=== PATIENT | female | born 1995 | race Caucasian/White ===

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

== ENCOUNTER 2017-04-23 17:34 | Emergency (ER) | payer BC, MEDICAID ==
--- NOTE | 2017-04-23 19:04 | EDM.PDOC ---
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 Pt thinks she lost a lot blood an is dizzy because of that. No N/V/D, denies . No F/C no other acute medical issues. Onset: Unknown/Unsure Onset Date: 04/19/17 Onset Time: 07:00 Duration: Day(s): Location: Reports: Pelvis Quality: Reports: Other Severity: Mild Improves with: Reports: None Worsens with: Reports: None Associated Symptoms: Reports: No Other Symptoms Lower Abdomen Pain Score (Numeric/FACES): 8 - Related Data Allergies Allergy/AdvReac Type Severity Reaction Status Date / Time No Known Allergies Allergy Verified 04/23/17 17:42 Home Meds: Home Meds Prazosin [Minpress] 1 mg PO DAILY 04/23/17 [History] buPROPion [Wellbutrin] 100 mg PO DAILY 04/23/17 [History] traMADol [Ultram] 50 mg PO Q6H PRN 04/23/17 [History] Past Medical History HEENT History: Reports: Impaired Vision Psychiatric History: Reports: Panic Attack - Past Surgical History HEENT Surgical History: Reports: Tonsillectomy Other HEENT Surgeries/Procedures: eye muscle shortening previously cross-eyed Social & Family History - Family History Family Medical History: Noncontributory - Tobacco Use Smoking Status *Q: Current Every Day Smoker Years of Tobacco use: 9 Packs/Tins Daily: 0.5 - Caffeine Use Caffeine Use: Reports: Tea - Recreational Drug Use Recreational Drug Use: No Recreational Drug Type: Reports: Cocaine, Other (see below) Other Recreational Drug Type: adderal. ED ROS GENERAL - Review of Systems Review Of Systems: See Below Constitutional: Reports: Other (dizzi) HEENT: Reports: No Symptoms Respiratory: Reports: No Symptoms Cardiovascular: Reports: No Symptoms Endocrine: Reports: No Symptoms GI/Abdominal: Reports: No Symptoms : Reports: No Symptoms Musculoskeletal: Reports: No Symptoms Skin: Reports: No Symptoms Neurological: Reports: No Symptoms Psychiatric: Reports: No Symptoms Hematologic/Lymphatic: Reports: No Symptoms Immunologic: Reports: No Symptoms ED EXAM, GI/ABD - Physical Exam Exam: See Below Exam Limited By: No Limitations General Appearance: Alert, WD/WN, No Apparent Distress Eyes: Bilateral: Normal Appearance Ears: Normal External Exam Nose: Normal Inspection, Normal Mucosa Throat/Mouth: Normal Inspection, Normal Lips Head: Atraumatic, Normocephalic Neck: Normal Inspection, Supple, Non-Tender, Full Range of Motion Respiratory/Chest: No Respiratory Distress, Lungs Clear Cardiovascular: Normal Peripheral Pulses, Regular Rate, Rhythm, No Edema, No Gallop, No JVD, No Murmur, No Rub GI/Abdominal Exam: Normal Bowel Sounds, Soft, Non-Tender, No Organomegaly, No Distention, No Abnormal Bruit, No Mass, Pelvis Stable (Female) Exam: Deferred Rectal (Female) Exam: Deferred Back Exam: Normal Inspection, Full Range of Motion Extremities: Normal Inspection, Normal Range of Motion, Non-Tender, No Pedal Edema, Normal Capillary Refill Neurological: Alert, Oriented, CN II-XII Intact, Normal Cognition, Normal Gait, Normal Reflexes, No Motor/Sensory Deficits Psychiatric: Normal Affect, Normal Mood Skin Exam: Warm, Dry, Intact, Normal Color, No Rash Lymphatic: No Adenopathy Course - Vital Signs Text/Narrative:: 22 my.o.w.f came to the ed due to irregular menses-4 menstrual periods in 4 weeks- and dizziness. Pt thinks she lost a lot blood an is dizzy because of that. No N/V/D, denies . No F/C no other acute medical issues. PE: WNWD WF, NAD Orthostatic pos for dehyd. with puls change from supine to standing position. Labs: CBC nl Impression: Irregular menses, dehydration Tx: Water to drink Reexam: Improved Plan: D/C with instructions Last Recorded V/S: Last Vital Signs Temp 36.9 C 04/23/17 17:47 Pulse 88 04/23/17 19:15 Resp 20 04/23/17 17:47 BP 107/56 L 04/23/17 19:15 Pulse Ox 99 04/23/17 17:47 Orthostatic Blood Pressure [ 108/58 Standing] Orthostatic Blood Pressure [ 115/67 Sitting] Orthostatic Blood Pressure [ 120/60 Supine] - Orders/Labs/Meds Orders: Active Orders 24 hr Category Date Time Status Orthostatic Vital Signs [RC] ASDIRECTED Care 04/23/17 18:01 Active Labs: Laboratory Tests 04/23/17 04/23/17 04/23/17 Range/Units 17:48 17:48 18:30 WBC 5.6 (4.5-12.0) X10-3/uL RBC 5.15 (3.23-5.20) x10(6)uL Hgb 14.7 (11.5-15.5) g/dL Hct 43.2 (30.0-51.3) % MCV 83.9 (80-96) fL MCH 28.5 (27.7-33.6) pg MCHC 33.9 (32.2-35.4) g/dL RDW 12.1 (11.5-15.5) % Plt Count 233 (125-369) X10(3)uL MPV 10.2 (7.4-10.4) fL Neut % (Auto) 67.8 (46-82) % Lymph % (Auto) 23.7 (13-37) % [place] % (Auto) 6.0 (4-12) % Eos % (Auto) 2 (1.0-5.0) % Baso % (Auto) 0 (0-2) % Neut # (Auto) 3.9 (1.6-8.3) # Lymph # (Auto) 1.3 (0.6-5.0) # [place] # (Auto) 0.3 (0.0-1.3) # Eos # (Auto) 0.1 (0.0-0.8) # Baso # (Auto) 0.0 (0.0-0.2) # Sodium (135-145) mmol/L Potassium (3.5-5.3) mmol/L Chloride (100-110) mmol/L Carbon Dioxide (23-29) mmol/L BUN (5-20) mg/dL Creatinine (0.6-1.3) mg/dL Est Cr Clr Drug Dosing mL/min Estimated GFR (MDRD) (>60) BUN/Creatinine Ratio (9-20) Glucose (80-116) mg/dL Calcium (8.6-10.2) mg/dL Urine Color [place] (YELLOW) Urine Appearance Slightly cloudy (CLEAR) Urine pH 5.0 (5.0-6.5) Ur Specific [place] 1.025 (1.010-1.025) Urine Protein Negative (NEGATIVE) mg/dL Urine Glucose (UA) Normal (NEGATIVE) mg/dL Urine Ketones Negative (NEGATIVE) mg/dL Urine Occult Blood Large H (NEGATIVE) Urine Nitrite Negative (NEGATIVE) Urine Bilirubin Negative (NEGATIVE) Urine Urobilinogen Normal (NEGATIVE) mg/dL Ur Leukocyte Esterase Negative (NEGATIVE) Urine RBC 40-50 H (0) Urine WBC 0-5 (0) Ur Squamous Epith Cells Occasional (NS,R,O) Urine Bacteria Few H (NS) Urine HCG, Qual Negative (NEGATIVE) 04/23/17 Range/Units 18:30 WBC (4.5-12.0) X10-3/uL RBC (3.23-5.20) x10(6)uL Hgb (11.5-15.5) g/dL Hct (30.0-51.3) % MCV (80-96) fL MCH (27.7-33.6) pg MCHC (32.2-35.4) g/dL RDW (11.5-15.5) % Plt Count (125-369) X10(3)uL MPV (7.4-10.4) fL Neut % (Auto) (46-82) % Lymph % (Auto) (13-37) % [place] % (Auto) (4-12) % Eos % (Auto) (1.0-5.0) % Baso % (Auto) (0-2) % Neut # (Auto) (1.6-8.3) # Lymph # (Auto) (0.6-5.0) # [place] # (Auto) (0.0-1.3) # Eos # (Auto) (0.0-0.8) # Baso # (Auto) (0.0-0.2) # Sodium 134 L D (135-145) mmol/L Potassium 3.9 (3.5-5.3) mmol/L Chloride 103 D (100-110) mmol/L Carbon Dioxide 26 (23-29) mmol/L BUN 11 (5-20) mg/dL Creatinine 0.9 (0.6-1.3) mg/dL Est Cr Clr Drug Dosing 107.82 mL/min Estimated GFR (MDRD) > 60 (>60) BUN/Creatinine Ratio 12.2 (9-20) Glucose 105 (80-116) mg/dL Calcium 8.7 (8.6-10.2) mg/dL Urine Color (YELLOW) Urine Appearance (CLEAR) Urine pH (5.0-6.5) Ur Specific [place] (1.010-1.025) Urine Protein (NEGATIVE) mg/dL Urine Glucose (UA) (NEGATIVE) mg/dL Urine Ketones (NEGATIVE) mg/dL Urine Occult Blood (NEGATIVE) Urine Nitrite (NEGATIVE) Urine Bilirubin (NEGATIVE) Urine Urobilinogen (NEGATIVE) mg/dL Ur Leukocyte Esterase (NEGATIVE) Urine RBC (0) Urine WBC (0) Ur Squamous Epith Cells (NS,R,O) Urine Bacteria (NS) Urine HCG, Qual (NEGATIVE) Departure - Departure Time of Disposition: 19:01 Disposition: Home, Self-Care 01 Condition: Good Clinical Impression: Dehydration, Irregular menstrual bleeding - Discharge Information Referrals: Bianca Mejia NP [Primary Care Provider] - Forms: ED Department Discharge, ED Return to Work/School Form Additional Instructions: Please increase water intake, please follow up with your OBGYN for your irregular menstrual bleed. Please come back to the ed if your symptoms get worse acutely. - My Orders Last 24 Hours: My Active Orders 04/23/17 18:01 Orthostatic Vital Signs [RC] ASDIRECTED - Assessment/Plan Last 24 Hours: My Active Orders 04/23/17 18:01 Orthostatic Vital Signs [RC] ASDIRECTED
[2017-04-23 19:17] VITALS: BP 107/56
== END 2017-04-23 19:15 | disposition home or self-care (01) ==
LOC: FB.ED 17:34
DX: N92.6 Irregular menstruation, unspecified (principal); R10.30 Lower abdominal pain, unspecified; E86.0 Dehydration; F17.210 Nicotine dependence, cigarettes, uncomplicated; Z79.899 Other long term (current) drug therapy; Z90.89 Acquired absence of other organs
CPT/HCPCS: 36415; 80048; 81001; 81025; 85025; 99284

== ENCOUNTER 2017-06-08 09:42 | Emergency (ER) | payer BC, MEDICAID ==
--- NOTE | 2017-06-08 10:27 | EDM.PDOC ---
ED HPI GENERAL MEDICAL PROBLEM - General Chief Complaint: Abdominal Pain Stated Complaint: STOMACH PAIN Time Seen by Provider: 06/08/17 10:00 Source of Information: Reports: Patient, Old Records History Limitations: Reports: No Limitations - History of Present Illness INITIAL COMMENTS - FREE TEXT/NARRATIVE: Colleen comes to [facility] ED with a 4 hour hx of R pelvic sharp pains with radiation suprapubically to the L side. There is also a loose stool this am, without BRB or mucous. She has experienced similar sxs over the past few cycles , with pains lasting for a day. Her LMP was about 2 weeks ago. She is sexually active, on no contraception. Lower abdomen Pain Score (Numeric/FACES): 9 - Related Data Allergies Allergy/AdvReac Type Severity Reaction Status Date / Time No Known Allergies Allergy Verified 04/23/17 17:42 Home Meds: Home Meds Prazosin [Minpress] 1 mg PO BEDTIME PRN 04/23/17 [History] buPROPion [Wellbutrin] 100 mg PO DAILY 04/23/17 [History] traMADol [Ultram] 50 mg PO Q6H PRN 04/23/17 [History] Omeprazole [Omeprazole] 20 mg DAILY 06/08/17 [History] Past Medical History HEENT History: Reports: Impaired Vision Psychiatric History: Reports: Depression, Panic Attack, Suicidal Ideation - Past Surgical History HEENT Surgical History: Reports: Tonsillectomy Other HEENT Surgeries/Procedures: eye muscle shortening previously cross-eyed Social & Family History - Family History Family Medical History: Noncontributory - Tobacco Use Smoking Status *Q: Current Every Day Smoker Years of Tobacco use: 9 Packs/Tins Daily: 0.5 - Caffeine Use Caffeine Use: Reports: Tea - Recreational Drug Use Recreational Drug Use: No Recreational Drug Type: Reports: Cocaine, Other (see below) Other Recreational Drug Type: adderal. ED ROS GENERAL - Review of Systems Review Of Systems: See Below Constitutional: Reports: No Symptoms HEENT: Reports: No Symptoms Respiratory: Reports: No Symptoms Cardiovascular: Reports: No Symptoms Endocrine: Reports: No Symptoms GI/Abdominal: Reports: Diarrhea, Other (pelvic pain, no back pain) : Reports: Other (pelvic pain) Musculoskeletal: Reports: No Symptoms Skin: Reports: No Symptoms Neurological: Reports: No Symptoms Psychiatric: Reports: No Symptoms Hematologic/Lymphatic: Reports: No Symptoms Immunologic: Reports: No Symptoms ED EXAM, RENAL/ - Physical Exam Exam: See Below Exam Limited By: No Limitations General Appearance: Alert, WD/WN, No Apparent Distress Throat/Mouth: Normal Inspection, Normal Oropharynx Head: Atraumatic Neck: Normal Inspection, Supple, Non-Tender, Full Range of Motion Respiratory/Chest: Lungs Clear, Normal Breath Sounds, Chest Non-Tender Cardiovascular: Normal Peripheral Pulses, Regular Rate, Rhythm, No Murmur GI/Abdominal: Normal Bowel Sounds, Soft, No Organomegaly, No Mass, Pelvis Stable , Tender (mild tenderness RLQ near pelvic brim) Rectal (Female) Exam: Deferred Back Exam: Normal Inspection Extremities: Normal Inspection, Normal Range of Motion Neurological: Alert, Oriented, CN II-XII Intact, Normal Cognition, Normal Gait, No Motor/Sensory Deficits Psychiatric: Normal Affect, Normal Mood Skin Exam: Warm, Dry Lymphatic: No Adenopathy Course - Vital Signs Text/Narrative:: Colleen remained stable at the [facility] ED. No meds were administered. The labs including se HCG were baseline or negative. The pelvic US noted an involuting cyst of the R ovary, and a 2.4 cm simple cyst of the L ovary, with a small amount of pelvic fluid. Mittleschmerz is the suspected source. Last Recorded V/S: Last Vital Signs Temp 36.4 C 06/08/17 09:44 Pulse 76 06/08/17 09:44 Resp 18 06/08/17 11:24 BP 123/55 L 06/08/17 11:24 Pulse Ox 99 06/08/17 11:24 - Orders/Labs/Meds Orders: Active Orders 24 hr Category Date Time Status Pelvis Non OB Ltd [US] Stat Exams 06/08/17 10:17 Taken Transvaginal Non OB [US] Stat Exams 06/08/17 11:28 Taken Labs: Laboratory Tests 06/08/17 06/08/17 06/08/17 Range/Units 10:17 10:39 10:39 WBC 9.5 (4.5-12.0) X10-3/uL RBC 4.76 (3.23-5.20) x10(6)uL Hgb 13.9 (11.5-15.5) g/dL Hct 39.9 (30.0-51.3) % MCV 83.8 (80-96) fL MCH 29.3 (27.7-33.6) pg MCHC 35.0 (32.2-35.4) g/dL RDW 12.8 (11.5-15.5) % Plt Count 253 (125-369) X10(3)uL MPV 9.9 (7.4-10.4) fL Neut % (Auto) 72.9 (46-82) % Lymph % (Auto) 17.7 (13-37) % [place] % (Auto) 7.2 (4-12) % Eos % (Auto) 2 (1.0-5.0) % Baso % (Auto) 0 (0-2) % Neut # (Auto) 6.9 (1.6-8.3) # Lymph # (Auto) 1.7 (0.6-5.0) # [place] # (Auto) 0.7 (0.0-1.3) # Eos # (Auto) 0.2 (0.0-0.8) # Baso # (Auto) 0.0 (0.0-0.2) # POC Sodium (135-145) mmol/L POC Potassium (3.5-5.3) mmol/L POC Chloride (100-110) mmol/L POC Total CO2 (23.0-30.0) mmol/L POC BUN (7-18) mg/dL POC Creatinine (0.6-1.3) mg/dL POC Glucose (80-116) mg/dL HCG, Quant 3 (2.0 - ) mIU/mL Urine Color Yellow (YELLOW) Urine Appearance Cloudy (CLEAR) Urine pH 8.0 H (5.0-6.5) Ur Specific [place] 1.015 (1.010-1.025) Urine Protein Negative (NEGATIVE) mg/dL Urine Glucose (UA) Normal (NEGATIVE) mg/dL Urine Ketones Negative (NEGATIVE) mg/dL Urine Occult Blood Negative (NEGATIVE) Urine Nitrite Negative (NEGATIVE) Urine Bilirubin Negative (NEGATIVE) Urine Urobilinogen Normal (NEGATIVE) mg/dL Ur Leukocyte Esterase Negative (NEGATIVE) Urine RBC Not seen (0) Urine WBC Not seen (0) Ur Squamous Epith Cells Few H (NS,R,O) 06/08/17 Range/Units 10:39 WBC (4.5-12.0) X10-3/uL RBC (3.23-5.20) x10(6)uL Hgb (11.5-15.5) g/dL Hct (30.0-51.3) % MCV (80-96) fL MCH (27.7-33.6) pg MCHC (32.2-35.4) g/dL RDW (11.5-15.5) % Plt Count (125-369) X10(3)uL MPV (7.4-10.4) fL Neut % (Auto) (46-82) % Lymph % (Auto) (13-37) % [place] % (Auto) (4-12) % Eos % (Auto) (1.0-5.0) % Baso % (Auto) (0-2) % Neut # (Auto) (1.6-8.3) # Lymph # (Auto) (0.6-5.0) # [place] # (Auto) (0.0-1.3) # Eos # (Auto) (0.0-0.8) # Baso # (Auto) (0.0-0.2) # POC Sodium 141 (135-145) mmol/L POC Potassium 3.8 (3.5-5.3) mmol/L POC Chloride 103 (100-110) mmol/L POC Total CO2 25.0 (23.0-30.0) mmol/L POC BUN 16 (7-18) mg/dL POC Creatinine 0.8 (0.6-1.3) mg/dL POC Glucose 94 (80-116) mg/dL HCG, Quant (2.0 - ) mIU/mL Urine Color (YELLOW) Urine Appearance (CLEAR) Urine pH (5.0-6.5) Ur Specific [place] (1.010-1.025) Urine Protein (NEGATIVE) mg/dL Urine Glucose (UA) (NEGATIVE) mg/dL Urine Ketones (NEGATIVE) mg/dL Urine Occult Blood (NEGATIVE) Urine Nitrite (NEGATIVE) Urine Bilirubin (NEGATIVE) Urine Urobilinogen (NEGATIVE) mg/dL Ur Leukocyte Esterase (NEGATIVE) Urine RBC (0) Urine WBC (0) Ur Squamous Epith Cells (NS,R,O) Departure - Departure Time of Disposition: 11:49 Disposition: Home, Self-Care 01 Condition: Fair Clinical [facility] Qualifiers: Laterality: left Qualified Code(s): N83.202 - Unspecified ovarian cyst, left side - Discharge Information Referrals: Bianca Mejia NP [Primary Care Provider] - Forms: ED Department Discharge - Problem List & Annotations (1) Brian SNOMED Code(s): 66931776 Code(s): N94.0 - EMMAJULESMIRNA Status: Acute Current Visit: Yes Annotation/Comment:: Manage pain sxs with NSAIDs or Tylenol. (2) Ovarian cyst SNOMED Code(s): 46148216 Code(s): N83.209 - UNSPECIFIED OVARIAN CYST, UNSPECIFIED SIDE Status: Acute Current Visit: Yes Annotation/Comment:: Small simple cyst of L ovary, follow up with PCP suggested. Qualifiers: Laterality: left Qualified Code(s): N83.202 - Unspecified ovarian cyst, left side - Problem List Review Problem List Initiated/Reviewed/Updated: Yes - My Orders Last 24 Hours: My Active Orders 06/08/17 10:17 Pelvis Non OB Ltd [US] Stat 06/08/17 11:28 Transvaginal Non OB [US] Stat - Assessment/Plan Last 24 Hours: My Active Orders 06/08/17 10:17 Pelvis Non OB Ltd [US] Stat 06/08/17 11:28 Transvaginal Non OB [US] Stat Plan: Follow up with PCP.
[2017-06-08 11:25] VITALS: BP 123/55
--- NOTE | 2017-06-08 12:01 | US ---
INDICATION: Right adnexal pain, possible mittelschmerz. PELVIC ULTRASOUND, NON-OB, LIMITED: Utilizing transabdominal probe, multiple ultrasonic images were obtained. The urinary bladder was almost empty and limited visualization of the uterus and ovaries is obtained with no gross abnormalities identified. No adnexal mass lesions or free fluid collections were seen. IMPRESSION: Grossly normal pelvic ultrasound. Need endovaginal probe ultrasound for better visualization of the uterus and ovaries. INDICATION: Right adnexal pain, possible mittelschmerz/need better visualization of the uterus and ovaries than was possible with the transabdominal probe. TRANSVAGINAL PELVIC ULTRASOUND: Utilizing transvaginal probe, multiple ultrasonic images were obtained and revealed the uterus to measure 7.7 x 3.1 x 4.3 cm. Endometrial cavity echo was 8.2 mm. The right ovary measured 2.7 x 2.5 x 1.9 cm. The left ovary measured 3.8 x 2.9 x 2.1 cm. The endometrium appeared somewhat prominent, which may be on the basis of menstrual cycle. No endometrial or myometrial mass was suggested. Follicles are noted at the right ovary with what appears to be an involuting follicular cyst, which appears to measure approximately 17 x 6.7 mm. It is irregular in shape. A follow-up study could be obtained in 2 weeks to confirm complete involution. At the left ovary, there is a probable follicular cyst which measured 24 x 19 mm. No adnexal mass lesions were identified. There is a small amount of posterior cul-de-sac fluid noted. This may be on the basis of a recently involuting follicular cyst on the right. IMPRESSION: 1. Probable involuting follicular cyst at the right ovary. 2. Follicular cyst at the left ovary which measures approximately 2.4 cm. Both findings could be reevaluated in 2 weeks with transvaginal probe to confirm involution. Report was called to Dr. Norwood at 1137 hours, 06/08/2017. [facility] CENTERShazia
== END 2017-06-08 11:57 | disposition home or self-care (01) ==
LOC: FB.ED 09:42
DX: N83.202 Unspecified ovarian cyst, left side (principal); N94.0 Mittelschmerz; F17.210 Nicotine dependence, cigarettes, uncomplicated; Z79.899 Other long term (current) drug therapy
CPT/HCPCS: 36415; 76830; 76857; 80047; 81001; 84702; 85025; 99284

== ENCOUNTER 2017-07-03 18:55 | Emergency (ER) | payer BC, MEDICAID, OTHER ==
[2017-07-03 19:12] VITALS: BP 130/60
--- NOTE | 2017-07-04 00:40 | ER ---
DATE SEEN: 07/03/2017 TIME SEEN: 1930 hours. CHIEF COMPLAINT: Hand injury. HISTORY OF PRESENT ILLNESS: This is a 22-year-old female who hurt the left hand after a heavy object fell on her left hand yesterday 2 times. Complains of pain in the index finger of the hand and also the wrist area at the base of the thumb. Moderate pain associated with swelling. REVIEW OF SYSTEMS: No fever or chills. All other systems negative. PAST MEDICAL HISTORY: No previous injuries to that hand. PHYSICAL EXAMINATION: VITAL SIGNS: Blood pressure is normal and temperature 97.6. EXTREMITIES: Left hand: There is mild swelling at the distal phalanx of the left index finger, it is tender to palpation. However, she has normal range of motion of the PIP and MCP joints. There is tenderness on the dorsum of the left hand between the 3rd and 4th digits. No other signs of trauma noted. X-RAY: Negative x-ray to my interpretation. IMPRESSION: Soft tissue injury to the left hand. PLAN: Ice, rest, and elevation. I recommend ibuprofen p.r.n. and to see Bianca Mejia on Sunday, 07/09. In the meantime, not to use that hand at work. May discontinue the brace. /[id number] JOHN/CUCA
--- NOTE | 2017-07-05 09:10 | CR ---
INDICATION: Injury, pain, and swelling. Dropped a 30-pound part on hand. LEFT HAND: Three views of the left hand revealed suggestion of minimal soft tissue swelling over the dorsum of the hand at the level of the mid shaft of the metacarpals. A fracture, dislocation, or other significant bone or joint abnormality was not identified. MTDD
== END 2017-07-03 19:38 | disposition home or self-care (01) ==
LOC: FB.ED 18:55
DX: S69.92XA Unspecified injury of left wrist, hand and finger(s), initial encounter (principal); W20.8XXA Other cause of strike by thrown, projected or falling object, initial encounter; Y99.0 Civilian activity done for income or pay
CPT/HCPCS: 73130-LT; 99000; 99283

== ENCOUNTER 2017-11-23 18:30 | Emergency (ER) | payer MEDICAID ==
[2017-11-23 19:34] VITALS: BP 110/64
--- NOTE | 2017-11-24 01:14 | ER ---
DATE SEEN: 11/23/2017 TIME SEEN: 1900 hours. REASON FOR VISIT: Abdominal pain. HISTORY OF PRESENT ILLNESS: A 22-year-old female with abdominal discomfort that started a couple days ago. It is generalized in the pelvic area. She is approximately 9 weeks . She denies any bleeding. She also complains of stools leaking liquid and foul smelling. Denies urinary symptoms. No nausea or vomiting. PAST MEDICAL HISTORY: She has a history of depression, ovarian cyst, alcohol use, and mittelschmerz pain. Ultrasound on the of this month showed possible 2 gestations, but they are not sure. ALLERGIES: She has no known allergies. PHYSICAL EXAMINATION: GENERAL: She is pleasant. VITAL SIGNS: Her blood pressure and temperature are normal. ABDOMEN: Soft with tenderness to palpation in the suprapubic area. LABORATORY DATA: Labs are normal including CMP, but a urine made the criteria for culture. Ultrasound was unavailable. I did review the one done on 10/29/2017. IMPRESSION: 1. Early . 2. Constipation. 3. Abdominal pain in . PLAN: Reassurance, drink fluids, take Tylenol, high-fiber diet, treat constipation appropriately. Follow up with doctor on Sunday. Otherwise, return with any worsening symptoms. /[id number] 104 JOHN/CUCA
== END 2017-11-23 20:08 | disposition home or self-care (01) ==
LOC: FB.ED 18:30
DX: O99.611 Diseases of the digestive system complicating pregnancy, first trimester (principal); O99.89 Other specified diseases and conditions complicating pregnancy, childbirth and the puerperium; K59.00 Constipation, unspecified; R10.9 Unspecified abdominal pain; I10 Essential (primary) hypertension; Z3A.09 9 weeks gestation of pregnancy
CPT/HCPCS: 36415; 80048; 81001; 85025; 99283

== ENCOUNTER 2017-11-29 19:05 | Emergency (ER) | payer MEDICAID ==
[2017-11-29 19:50] VITALS: BP 110/69
--- NOTE | 2017-11-29 20:01 | EDM.PDOC ---
ED HPI GENERAL MEDICAL PROBLEM - General Chief Complaint: Back Pain or Injury Stated Complaint: BACK PAIN AND MIGRAINE Time Seen by Provider: 11/29/17 19:35 Source of Information: Reports: Patient History Limitations: Reports: No Limitations - History of Present Illness INITIAL COMMENTS - FREE TEXT/NARRATIVE: Colleen comes to [facility] ED at 10 weeks gestations with low back pain over the past few days after lifting a 20# tub of parts. Sxs seemed better last night, without radiation in to the legs, but today pain and stiffness seem more problematic. She left work early today, and has taken no meds. Her general health is good. 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: currently 9 6/7 weeks Musculoskeletal History: Reports: Fracture Other Musculoskeletal History: fx L wrist, bilat carpal tunnel Neurological History: Reports: Concussion, Migraines Psychiatric History: Reports: Depression, Panic Attack, Suicidal Ideation Hematologic History: Reports: Anemia - Past Surgical History HEENT Surgical History: Reports: Tonsillectomy Other HEENT Surgeries/Procedures: eye muscle shortening previously cross-eyed Neurological Surgical History: Reports: None Musculoskeletal Surgical History: Reports: None Social & Family History - Family History Family Medical History: Noncontributory - Tobacco Use Smoking Status *Q: Never Smoker Years of Tobacco use: 9 Packs/Tins Daily: 0.5 Second Hand Smoke Exposure: No - Caffeine Use Caffeine Use: Reports: Tea - Recreational Drug Use Recreational Drug Use: No Recreational Drug Type: Reports: Cocaine, Other (see below) Other Recreational Drug Type: adderal. ED ROS GENERAL - Review of Systems Review Of Systems: ROS reveals no pertinent complaints other than HPI. ED EXAM,LOWER BACK PAIN/INJURY - Physical Exam Exam: See Below Exam Limited By: No Limitations General Appearance: Alert, WD/WN, No Apparent Distress Head: Normocephalic Neck: Normal Inspection, Supple, Full Range of Motion Respiratory/Chest: Lungs Clear, Normal Breath Sounds, Chest Non-Tender Cardiovascular: Regular Rate, Rhythm, No Murmur GI/Abdominal: Normal Bowel Sounds, Soft, Non-Tender, No Organomegaly, No Distention, No Mass (Female) Exam: Deferred Rectal (Female) Exam: Deferred Back Exam: Normal Inspection, Muscle Spasm, Paraspinal Tenderness (lower back, mild tenderness of SI joints) Extremities: Normal Inspection, Normal Range of Motion, Non-Tender, No Pedal Edema Neurological: Alert, Normal Mood/Affect, Normal Dorsiflexion, CN II-XII Intact, Normal Plantar Flexion, Normal Gait Psychiatric: Normal Affect, Normal Mood Skin Exam: Warm, Dry, Intact, Normal Color Lymphatic: No Adenopathy Course - Vital Signs Text/Narrative:: No meds were administered during ED visit. Last Recorded V/S: Last Vital Signs Temp 36.6 C 11/29/17 19:43 Pulse Resp 18 11/29/17 19:43 BP 110/69 11/29/17 19:43 Pulse Ox 100 11/29/17 19:43 Departure - Departure Time of Disposition: 20:00 Disposition: Home, Self-Care 01 Condition: Fair Clinical Impression: Low back pain Qualifiers: Chronicity: chronic Back pain laterality: right Sciatica presence: without sciatica Qualified Code(s): M54.5 - Low back pain - Discharge Information Referrals: Bianca Mejia NP [Primary Care Provider] - - Problem List & Annotations (1) Low back pain SNOMED Code(s): 164574105 Code(s): M54.5 - LOW BACK PAIN Status: Acute Current Visit: Yes Annotation/Comment:: Cool packs, consider contrast massage with heat, Tylenol, icy-hot massage, gentle ROM Qualifiers: Chronicity: chronic Back pain laterality: right Sciatica presence: without sciatica Qualified Code(s): M54.5 - Low back pain; G89.29 - Other chronic pain - Problem List Review Problem List Initiated/Reviewed/Updated: Yes - Assessment/Plan Plan: Follow up if needed.
== END 2017-11-29 20:06 | disposition home or self-care (01) ==
LOC: FB.ED 19:05
DX: O99.89 Other specified diseases and conditions complicating pregnancy, childbirth and the puerperium (principal); M54.5 Low back pain; G89.29 Other chronic pain; Z3A.10 10 weeks gestation of pregnancy
CPT/HCPCS: 99283

== ENCOUNTER 2017-12-21 09:38 | Emergency (ER) | payer MEDICAID ==
[2017-12-21] MEDS ORDERED: Ondansetron 4 MG/2 ML SDV IVPUSH ONE (10:05)
[2017-12-21] MEDS ORDERED: Sodium Chloride 0.9% 1,000 ML IV ONE (10:05)
--- NOTE | 2017-12-21 10:12 | EDM.PDOC ---
ED HPI GENERAL MEDICAL PROBLEM - General Chief Complaint: Abdominal Pain Stated Complaint: ABDOMINAL PAIN Time Seen by Provider: 12/21/17 10:00 Source of Information: Reports: Patient History Limitations: Reports: No Limitations - History of Present Illness INITIAL COMMENTS - FREE TEXT/NARRATIVE: 22 y.o.w.f AB0. LNMP on 09/16/17/ came to the due to sudden onset of watery Diarrhea with severe nausea and epigastric pain (like needles in her stomach). Pt had 15-20 BM since midnight. Denied foreign travel. No sick contact. Pt is 13 weeks . No trauma. Pt feels severe ly nauseated as well, had poor water intake since yesterday. BP 125/56 Pulse 125 RR 18, O2 sat 100% on RA. Temp 36.6 Onset Date: 12/20/17 Onset Time: 23:55 Duration: Hour(s): Location: Reports: Generalized Quality: Reports: Burning Severity: Mild Improves with: Reports: Rest Worsens with: Reports: Movement Context: Reports: Other () Associated Symptoms: Reports: Nausea/Vomiting (diarrhea) - Related Data Allergies Allergy/AdvReac Type Severity Reaction Status Date / Time No Known Allergies Allergy Verified 11/29/17 19:41 Home Meds: Home Meds Vit W-Ca,Fe,FA(<1 mg) [ Vitamins] 1 each PO DAILY 11/29/17 [ History] Ondansetron [Zofran ODT] 4 mg PO Q6H PRN #20 tab.dis 12/21/17 [Rx] Past Medical History HEENT History: Reports: Impaired Vision Gastrointestinal History: Reports: GERD, Other (See Below) Other Gastrointestinal History: gluten intolerance [employer]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 9 6/7 weeks Musculoskeletal History: Reports: Fracture Other Musculoskeletal History: fx L wrist, bilat carpal tunnel Neurological History: Reports: Concussion, Migraines Psychiatric History: Reports: Depression, Panic Attack, Suicidal Ideation Hematologic History: Reports: Anemia - Past Surgical History HEENT Surgical History: Reports: Tonsillectomy Other HEENT Surgeries/Procedures: eye muscle shortening previously cross-eyed Neurological Surgical History: Reports: None Musculoskeletal Surgical History: Reports: None Social & Family History - Family History Family Medical History: Noncontributory - Caffeine Use Caffeine Use: Reports: Tea Caffeine Use Comment: probably 1 soda a week ED ROS GENERAL - Review of Systems Review Of Systems: See Below Constitutional: Reports: No Symptoms HEENT: Reports: No Symptoms Respiratory: Reports: No Symptoms Cardiovascular: Reports: No Symptoms Endocrine: Reports: No Symptoms GI/Abdominal: Reports: Abdominal Pain, Diarrhea, Nausea : Reports: No Symptoms Musculoskeletal: Reports: No Symptoms Skin: Reports: No Symptoms Neurological: Reports: No Symptoms Psychiatric: Reports: No Symptoms Hematologic/Lymphatic: Reports: No Symptoms Immunologic: Reports: No Symptoms ED EXAM, GI/ABD - Physical Exam Exam: See Below Exam Limited By: No Limitations General Appearance: Alert, WD/WN, Moderate Distress Eyes: Bilateral: Normal Appearance Ears: Normal External Exam, Normal Canal Nose: Normal Inspection Throat/Mouth: Normal Lips, Normal Teeth, Normal Gums, Normal Voice, No Airway Compromise, Other (dry mucosal membrane) Head: Atraumatic, Normocephalic Neck: Normal Inspection Respiratory/Chest: No Respiratory Distress, Lungs Clear, Normal Breath Sounds, No Accessory Muscle Use, Chest Non-Tender Cardiovascular: Normal Peripheral Pulses, Regular Rate, Rhythm, No Edema, No Gallop, No JVD, No Murmur, No Rub GI/Abdominal Exam: Normal Bowel Sounds (Female) Exam: Deferred Rectal (Female) Exam: Deferred Back Exam: Normal Inspection, Full Range of Motion Extremities: Normal Inspection, Normal Range of Motion, Non-Tender, No Pedal Edema, Normal Capillary Refill Neurological: Alert, Oriented, CN II-XII Intact, Normal Cognition, Normal Gait Psychiatric: Normal Affect, Normal Mood Skin Exam: Warm, Dry, Intact, Normal Color, No Rash Lymphatic: No Adenopathy Course - Vital Signs Text/Narrative:: 22 y.o.w.f AB0. LNMP on 09/16/17/ came to the due to sudden onset of watery Diarrhea with severe nausea and epigastric pain (like needles in her stomach). Pt had 15-20 BM since midnight. Denied foreign travel. No sick contact. Pt is 13 weeks . No trauma. Pt feels severe ly nauseated as well, had poor water intake since yesterday. BP 125/56 Pulse 125 RR 18, O2 sat 100% on RA. Temp 36.6 PE: epigasytic tenderness, nausea, dry mucosal membrane, anxious, is applying for a job. Pulse up / down while here in the ed Labs: WBC 12.5 (DDx ) UA: Serum keton 150 HCG 01053 potassium: 3.4 Pt was not able to give stool while here in the ed. Impression: Dehydration, Gastritis/Enteritis, . tension H/A Tx: NS, Zofran, Tylenol, Maalox Reexam: Improved. her pulse came down to 98 at 10.45. after doing phone calls, her pulse went up again. pt felt comfortable to be d/c'd. Pt was able to drink water in the ED. Plan: D/C with instructions Last Recorded V/S: Last Vital Signs Temp 36.7 C 12/21/17 10:00 Pulse 98 12/21/17 10:45 Resp 16 12/21/17 10:45 BP 118/67 12/21/17 10:45 Pulse Ox 98 12/21/17 10:45 - Orders/Labs/Meds Orders: Active Orders 24 hr Category Date Time Status Heart Tones [RC] ASDIRECTED Care 12/21/17 10:12 Active UA W/MICROSCOPIC [URIN] Stat Lab 12/21/17 10:18 Ordered Labs: Laboratory Tests 12/21/17 12/21/17 12/21/17 Range/Units 10:18 10:20 10:20 WBC 12.7 H (4.5-12.0) X10-3/uL RBC 5.05 (3.23-5.20) x10(6)uL Hgb 15.0 (11.5-15.5) g/dL Hct 44.0 (30.0-51.3) % MCV 87.0 (80-96) fL MCH 29.6 (27.7-33.6) pg MCHC 34.0 (32.2-35.4) g/dL RDW 12.7 (11.5-15.5) % Plt Count 249 (125-369) X10(3)uL MPV 10.0 (7.4-10.4) fL Add Manual Diff Yes Neutrophils % (Manual) 95 H (46-82) % Lymphocytes % (Manual) 3 L (13-37) % Monocytes % (Manual) 2 L (4-12) % Sodium 136 (135-145) mmol/L Potassium 3.4 L (3.5-5.3) mmol/L Chloride 100 (100-110) mmol/L Carbon Dioxide 22 (21-32) mmol/L BUN 14 (7-18) mg/dL Creatinine 0.8 (0.55-1.02) mg/dL Est Cr Clr Drug Dosing 121.30 mL/min Estimated GFR (MDRD) > 60 (>60) BUN/Creatinine Ratio 17.5 (9-20) Glucose 107 (80-116) mg/dL Calcium 9.0 (8.6-10.2) mg/dL HCG, Quant (<5) mIU/mL Urine Color Yellow (YELLOW) Urine Appearance Slightly cloudy (CLEAR) Urine pH 5.0 (5.0-6.5) Ur Specific [place] 1.025 (1.010-1.025) Urine Protein Negative (NEGATIVE) mg/dL Urine Glucose (UA) Normal (NEGATIVE) mg/dL Urine Ketones 150 H (NEGATIVE) mg/dL Urine Occult Blood Negative (NEGATIVE) Urine Nitrite Negative (NEGATIVE) Urine Bilirubin Negative (NEGATIVE) Urine Urobilinogen Normal (NEGATIVE) mg/dL Ur Leukocyte Esterase Negative (NEGATIVE) Urine WBC 0-5 (0) Ur Squamous Epith Cells Moderate H (NS,R,O) Urine Bacteria Many H (NS) 12/21/17 Range/Units 10:20 WBC (4.5-12.0) X10-3/uL RBC (3.23-5.20) x10(6)uL Hgb (11.5-15.5) g/dL Hct (30.0-51.3) % MCV (80-96) fL MCH (27.7-33.6) pg MCHC (32.2-35.4) g/dL RDW (11.5-15.5) % Plt Count (125-369) X10(3)uL MPV (7.4-10.4) fL Add Manual Diff Neutrophils % (Manual) (46-82) % Lymphocytes % (Manual) (13-37) % Monocytes % (Manual) (4-12) % Sodium (135-145) mmol/L Potassium (3.5-5.3) mmol/L Chloride (100-110) mmol/L Carbon Dioxide (21-32) mmol/L BUN (7-18) mg/dL Creatinine (0.55-1.02) mg/dL Est Cr Clr Drug Dosing mL/min Estimated GFR (MDRD) (>60) BUN/Creatinine Ratio (9-20) Glucose (80-116) mg/dL Calcium (8.6-10.2) mg/dL HCG, Quant 26600 (<5) mIU/mL Urine Color (YELLOW) Urine Appearance (CLEAR) Urine pH (5.0-6.5) Ur Specific [place] (1.010-1.025) Urine Protein (NEGATIVE) mg/dL Urine Glucose (UA) (NEGATIVE) mg/dL Urine Ketones (NEGATIVE) mg/dL Urine Occult Blood (NEGATIVE) Urine Nitrite (NEGATIVE) Urine Bilirubin (NEGATIVE) Urine Urobilinogen (NEGATIVE) mg/dL Ur Leukocyte Esterase (NEGATIVE) Urine WBC (0) Ur Squamous Epith Cells (NS,R,O) Urine Bacteria (NS) Meds: Medications Discontinued Medications Generic Name Dose Route Start Last Admin Trade Name Freq PRN Reason Stop Dose Admin Acetaminophen 500 mg 12/21/17 11:32 12/21/17 11:37 Tylenol Extra Strength PO 12/21/17 11:33 500 mg ONETIME ONE Administration Al Hydroxide/Mg Hydroxide 30 ml 12/21/17 11:10 12/21/17 11:22 Mag-Al Susp PO 12/21/17 11:11 30 ml ONETIME STA Administration Sodium Chloride 1,000 mls @ 999 mls/hr 12/21/17 10:05 12/21/17 10:30 Normal Saline IV 12/21/17 11:05 999 mls/hr .BOLUS ONE Administration Ondansetron HCl 8 mg 12/21/17 10:05 12/21/17 11:00 Zofran IVPUSH 12/21/17 10:06 8 mg ONETIME ONE Administration Ondansetron HCl Confirm 12/21/17 10:59 12/21/17 11:10 Zofran Administered 12/21/17 11:00 Not Given Dose 4 mg .ROUTE .STK-MED ONE Departure - Departure Time of Disposition: 12:20 Disposition: Home, Self-Care 01 Condition: Good Clinical Impression: Gastroenteritis, Dehydration Qualifiers: Weeks of gestation: 13 weeks Qualified Code(s): Z3A.13 - 13 weeks gestation of - Discharge Information Prescriptions: Ondansetron [Zofran ODT] 4 mg PO Q6H PRN #20 tab.dis PRN Reason: nausea vomiting Referrals: Bianca Mejia NP [Primary Care Provider] - Forms: ED Department Discharge Additional Instructions: Please take Zofran for nausea an vomiting, Maalox 30 cc for epigastric (stomach pain). increase water intake, please advance diet as tolerated, please f/u, come back if your symptoms get worse acutely. - My Orders Last 24 Hours: My Active Orders 12/21/17 10:12 Heart Tones [RC] ASDIRECTED 12/21/17 10:18 UA W/MICROSCOPIC [URIN] Stat - Assessment/Plan Last 24 Hours: My Active Orders 12/21/17 10:12 Heart Tones [RC] ASDIRECTED 12/21/17 10:18 UA W/MICROSCOPIC [URIN] Stat
[2017-12-21] MEDS ORDERED: Ondansetron 4 MG/2 ML SDV ONE (10:59)
[2017-12-21] MEDS ORDERED: Aluminum Hydroxide/Magnesium Hydroxide Susp 30 ML Cup PO STA (11:10)
[2017-12-21] MEDS ORDERED: Acetaminophen 500 MG Tab PO ONE (11:32)
[2017-12-21 17:38] VITALS: BP 121/80
== END 2017-12-21 12:40 | disposition home or self-care (01) ==
LOC: FB.ED 09:38
DX: O99.611 Diseases of the digestive system complicating pregnancy, first trimester (principal); K92.89 Other specified diseases of the digestive system; O99.281 Endocrine, nutritional and metabolic diseases complicating pregnancy, first trimester; E86.0 Dehydration; O99.351 Diseases of the nervous system complicating pregnancy, first trimester; G44.209 Tension-type headache, unspecified, not intractable; Z3A.13 13 weeks gestation of pregnancy
CPT/HCPCS: 36415; 80048; 81001; 84702; 85025; 96361; 96374; 99283; A9270-GY; J2405; J7030

== ENCOUNTER 2018-09-15 00:15 | Emergency (ER) | payer MEDICAID ==
--- NOTE | 2018-09-15 04:18 | EDM.PDOC ---
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 At that time she had back injury. Normally she has 3/10 discomfort in her lower back.. Tonight the pain is increased to about 7/10 discomfort. She is breast-feeding. Not had a menstrual period since delivery. She denies dysuria, fever, head injury. While on the toilet this evening at approximately 22:15 p.m. experience moderate abdominal discomfort.In order to relieve the discomfort she thought she would take a shower. As she was in the shower she fainted and approximately 10 minutes later found herself on the floor. She notes it takes about 5-10 minutes before the shower gets cold. When she woke the shower water was cold. She denies hitting her head. She denies history of seizures. Denies upper or lower extremity pain. She still has dull discomfort in her loer anterio abdomen "at my lower waistline" and her baseline chronic back pain since more than usual. Several days ago ,for her IBS she was started on Hycosamine 0.125 mg daily. She took a dose this evening about 10 minutes before she got in the shower. She came into the hospital because she saw blood in the toilet. She thought perhaps she might be bleeding rectally. Denies vaginal bleeding. Does not use a tampon or a naila pad. No history of intercourse this evening or recently. Denies dyspareunia. - Related Data Allergies Allergy/AdvReac Type Severity Reaction Status Date / Time No Known Allergies Allergy Verified 02/26/18 23:28 Home Meds: Home Meds Vit Calc,Iron,Folic [ Vitamins] 1 each PO DAILY 11/29/17 [ History] Omeprazole Magnesium [Prilosec Otc] 20 mg PO DAILY 02/26/18 [History] Past Medical History HEENT History: Reports: Impaired Vision Gastrointestinal History: Reports: GERD, Other (See Below) Other Gastrointestinal History: gluten intolerance Genitourinary History: Reports: Other (See Below) Other Genitourinary History: chlamydia in 2015 and 2016 [employer] History: Reports: Polycystic Ovaries, Other [employer] History: currently Musculoskeletal History: Reports: Arthritis, Fracture, Other (See Below) Other Musculoskeletal History: fx L wrist, bilat carpal tunnel. degenerative disk disease Neurological History: Reports: Concussion, Migraines Psychiatric History: Reports: Anxiety, Depression, Panic Attack, PTSD, Suicidal Ideation, Other (See Below) Other Psychiatric History: borderline personality disorder, ETOH prior to Hematologic History: Reports: Anemia - Past Surgical History HEENT Surgical History: Reports: Tonsillectomy Other HEENT Surgeries/Procedures: eye muscle shortening previously cross-eyed, wears glasses Neurological Surgical History: Reports: None Musculoskeletal Surgical History: Reports: None Social & Family History - Family History Family Medical History: Noncontributory - Caffeine Use Caffeine Use: Reports: None Caffeine Use Comment: probably 1 soda a week ED ROS GENERAL - Review of Systems Review Of Systems: ROS reveals no pertinent complaints other than HPI. Constitutional: Reports: Other (Patient was breast-feeding clinic. She is very comfortable with breast-feeding and doing well with this.) ED EXAM, GENERAL - Physical Exam Exam: See Below Free Text/Narrative:: She has mild distress of anxiety over the uncertainty why she had blood in the toilet. Her chronic low back discomfort is 7/10, but normally is 3/10. The generalized lower abdominal discomfort is 7/10 - mostly in the suprapubic region. Exam Limited By: No Limitations General Appearance: Alert, WD/WN, Moderate Distress, Other (Mild distress basis of her description 7/10. However she looks like she is more comfortable that this number she is given to me) Eye Exam: Bilateral Eye: Normal Inspection Ear Exam: Bilateral Ear: Auricle Normal, Canal Normal, TM normal Nose: Normal Inspection Throat/Mouth: Normal Inspection Head: Atraumatic Neck: Normal Inspection, Supple, Non-Tender, Full Range of Motion Respiratory/Chest: No Respiratory Distress, Lungs Clear, Normal Breath Sounds, No Accessory Muscle Use, Chest Non-Tender Cardiovascular: Normal Peripheral Pulses, Regular Rate, Rhythm, No Edema, No JVD , No Murmur Peripheral Pulses: 1+: Brachial (R), Radial (L) GI/Abdominal: Normal Bowel Sounds, Soft, No Organomegaly, No Distention, No Abnormal Bruit, No Mass, Other (Mild suprapubic discomfort. No masses palpable.) (Female) Exam: Deferred, Other (Pelvic not performed.) Rectal (Female) Exam: Normal Exam, Normal Rectal Tone, Deferred, Other ( Hemoccult negative. No blood seen on digital exam. Normal anal tone.) Neurological: Alert, Oriented, CN II-XII Intact, Normal Cognition, Normal Gait, Normal Reflexes, No Motor/Sensory Deficits Psychiatric: Normal Affect, Normal Mood Skin Exam: Warm, Dry, Intact, Normal Color, No Rash Course - Orders/Labs/Meds Labs: Laboratory Tests 09/15/18 09/15/18 09/15/18 Range/Units 00:30 00:30 00:56 WBC 6.9 (4.5-12.0) X10-3/uL RBC 5.35 H (3.23-5.20) x10(6)uL Hgb 14.5 D (11.5-15.5) g/dL Hct 43.8 D (30.0-51.3) % MCV 81.8 (80-96) fL MCH 27.2 L (27.7-33.6) pg MCHC 33.2 (32.2-35.4) g/dL RDW 13.3 (11.5-15.5) % Plt Count 278 (125-369) X10(3)uL MPV 10.1 (7.4-10.4) fL Neut % (Auto) 61.7 (46-82) % Lymph % (Auto) 27.4 (13-37) % [place] % (Auto) 6.3 (4-12) % Eos % (Auto) 4 (1.0-5.0) % Baso % (Auto) 1 (0-2) % Neut # (Auto) 4.2 (1.6-8.3) # Lymph # (Auto) 1.9 (0.6-5.0) # [place] # (Auto) 0.4 (0.0-1.3) # Eos # (Auto) 0.3 (0.0-0.8) # Baso # (Auto) 0.1 (0.0-0.2) # Sodium (135-145) mmol/L Potassium (3.5-5.3) mmol/L Chloride (100-110) mmol/L Carbon Dioxide (21-32) mmol/L BUN (7-18) mg/dL Creatinine (0.55-1.02) mg/dL Est Cr Clr Drug Dosing Estimated GFR (MDRD) (>60) BUN/Creatinine Ratio (9-20) Glucose (80-116) mg/dL Calcium (8.6-10.2) mg/dL Total Bilirubin (0.1-1.3) mg/dL AST (5-25) IU/L ALT (12-36) U/L Alkaline Phosphatase (56-112) IU/L Total Protein (6.0-8.0) g/dL Albumin (3.5-5.2) g/dL Globulin g/dL Albumin/Globulin Ratio Urine Color Yellow (YELLOW) Urine Appearance Slightly cloudy (CLEAR) Urine pH 5.0 (5.0-6.5) Ur Specific [place] 1.030 H (1.010-1.025) Urine Protein Negative (NEGATIVE) mg/dL Urine Glucose (UA) Normal (NEGATIVE) mg/dL Urine Ketones Negative (NEGATIVE) mg/dL Urine Occult Blood Negative (NEGATIVE) Urine Nitrite Negative (NEGATIVE) Urine Bilirubin Negative (NEGATIVE) Urine Urobilinogen Normal (NEGATIVE) mg/dL Ur Leukocyte Esterase Negative (NEGATIVE) Urine RBC 0-5 (0) Urine WBC 0-5 (0) Ur Squamous Epith Cells Moderate H (NS,R,O) Urine Bacteria Few H (NS) Urine HCG, Qual Negative (NEGATIVE) 09/15/18 Range/Units 00:56 WBC (4.5-12.0) X10-3/uL RBC (3.23-5.20) x10(6)uL Hgb (11.5-15.5) g/dL Hct (30.0-51.3) % MCV (80-96) fL MCH (27.7-33.6) pg MCHC (32.2-35.4) g/dL RDW (11.5-15.5) % Plt Count (125-369) X10(3)uL MPV (7.4-10.4) fL Neut % (Auto) (46-82) % Lymph % (Auto) (13-37) % [place] % (Auto) (4-12) % Eos % (Auto) (1.0-5.0) % Baso % (Auto) (0-2) % Neut # (Auto) (1.6-8.3) # Lymph # (Auto) (0.6-5.0) # [place] # (Auto) (0.0-1.3) # Eos # (Auto) (0.0-0.8) # Baso # (Auto) (0.0-0.2) # Sodium 137 (135-145) mmol/L Potassium 3.6 (3.5-5.3) mmol/L Chloride 101 (100-110) mmol/L Carbon Dioxide 28 (21-32) mmol/L BUN 12 (7-18) mg/dL Creatinine 0.9 (0.55-1.02) mg/dL Est Cr Clr Drug Dosing TNP Estimated GFR (MDRD) > 60 (>60) BUN/Creatinine Ratio 13.3 (9-20) Glucose 107 (80-116) mg/dL Calcium 9.5 (8.6-10.2) mg/dL Total Bilirubin 0.4 (0.1-1.3) mg/dL AST 29 H (5-25) IU/L ALT 58 H (12-36) U/L Alkaline Phosphatase 105 (56-112) IU/L Total Protein 7.9 (6.0-8.0) g/dL Albumin 4.1 (3.5-5.2) g/dL Globulin 3.8 g/dL Albumin/Globulin Ratio 1.1 Urine Color (YELLOW) Urine Appearance (CLEAR) Urine pH (5.0-6.5) Ur Specific [place] (1.010-1.025) Urine Protein (NEGATIVE) mg/dL Urine Glucose (UA) (NEGATIVE) mg/dL Urine Ketones (NEGATIVE) mg/dL Urine Occult Blood (NEGATIVE) Urine Nitrite (NEGATIVE) Urine Bilirubin (NEGATIVE) Urine Urobilinogen (NEGATIVE) mg/dL Ur Leukocyte Esterase (NEGATIVE) Urine RBC (0) Urine WBC (0) Ur Squamous Epith Cells (NS,R,O) Urine Bacteria (NS) Urine HCG, Qual (NEGATIVE) Departure - Departure Time of Disposition: 01:10 Disposition: Home, Self-Care 01 Condition: Good (Vaginal bleeding) Clinical Impression: Normal breast feeding - Discharge Information *PRESCRIPTION DRUG MONITORING PROGRAM REVIEWED*: Not Applicable *COPY OF PRESCRIPTION DRUG MONITORING REPORT IN PATIENT LAURITA: Not Applicable Referrals: Bianca Mejia NP [Primary Care Provider] - Additional Instructions: The cause for your bleeding is indeterminant. Most likely the blood is from /first time spotting 3 months since your delivery. There is no suggestion of rectal bleed. The cause for your abdominal discomfort is indeterminant. The fact you have Irritable bowel syndrome B have something to do with your pain. The fact you took the hicosamine for the abdominal pain and just a few minutes before you fell in the shower is coincidental. And I don't think there is a relationship to the hycosamine causing you fall. It wasn't in your system long enough to change your blood pressure. I do not believe you had a seizure. There are no clinical findings to suggest seizure. I think there was a transient drop in her blood pressure and perhaps that may have caused her dizziness and near fall. Follow-up with her doctor in 1 week. Treat your abdominal pain without any narcotics; use thousand milligrams Tylenol and 600 mg ibuprofen together every 6 hours for pain and discomfort.
[2018-09-15 05:19] VITALS: BP 115/66
== END 2018-09-15 02:40 | disposition home or self-care (01) ==
LOC: FB.ED 00:15
DX: K58.9 Irritable bowel syndrome, unspecified (principal); R55 Syncope and collapse; K90.41 Non-celiac gluten sensitivity; K21.9 Gastro-esophageal reflux disease without esophagitis; F41.0 Panic disorder [episodic paroxysmal anxiety]; F43.10 Post-traumatic stress disorder, unspecified; F60.3 Borderline personality disorder
CPT/HCPCS: 36415; 80053; 81001; 81025; 82272; 85025; 99284

== ENCOUNTER 2019-02-14 19:13 | Emergency (ER) | payer MEDICAID, OTHER ==
[2019-02-14] MEDS ORDERED: traMADol 50 MG Tab PO ONE (19:14)
--- NOTE | 2019-02-14 19:44 | EDM.PDOC ---
ED HPI GENERAL MEDICAL PROBLEM - General Stated Complaint: BACK PAIN Time Seen by Provider: 02/14/19 19:44 Source of Information: Reports: Patient History Limitations: Reports: No Limitations - History of Present Illness INITIAL COMMENTS - FREE TEXT/NARRATIVE: 24-year-old female with acute strain of her lower thoracic back and with history of back pain who on 02/13/2019 at 8 PM was lifting her baby with outstretched arms and felt a pulling sensation in her mid back, mostly on the right side and had some discomfort in the back at that time but was able to sleep and felt okay in the morning when she woke. She did have some pain in the area and beginning approximately 1 PM she began to have increasing pain with a sharp and shooting pain that seemed to go up and down her back, again mostly on the right side. The pain is a 10/10. She does report the pain is somewhat worse with deep breath but she is really having no trouble breathing. She's had no nausea or vomiting. No abdominal pain. No cough. She is breast-feeding a 10- month-old . She has been able to eat and drink normally. There is no arm or leg weakness. There are no other associated signs or symptoms. There are no other modifying factors. Onset: Other (8 PM last night) Duration: Getting Worse Location: Reports: Back Quality: Reports: Sharp, Stabbing (And shooting) Severity: Severe Improves with: Reports: Rest Worsens with: Reports: Breathing (Some increased pain with deep breath), Other ( Palpation), Movement Context: Reports: Activity (As above) Associated Symptoms: Reports: No Other Symptoms Treatments BASEBALL WINDER: Reports: Other (see below) (Nothing) - Related Data Allergies Allergy/AdvReac Type Severity Reaction Status Date / Time Seasonal Allergy Other Uncoded 09/15/18 05:14 Home Meds: Home Meds Vit Calc,Iron,Folic [ Vitamins] 1 each PO DAILY 11/29/17 [ History] Hyoscyamine Sulfate 0.125 mg PO TID PRN 09/15/18 [History] Past Medical History HEENT History: Reports: Impaired Vision Gastrointestinal History: Reports: Celiac Disease, GERD Genitourinary History: Reports: Other (See Below) Other Genitourinary History: chlamydia in 2015 and 2016 [employer] History: Reports: Polycystic Ovaries Musculoskeletal History: Reports: Arthritis, Back Pain, Chronic, Fracture, Other (See Below) Other Musculoskeletal History: fx L wrist, bilat carpal tunnel. degenerative disk disease Neurological History: Reports: Concussion, Migraines Psychiatric History: Reports: Anxiety, Depression, Panic Attack, PTSD, Suicidal Ideation, Other (See Below) Other Psychiatric History: borderline personality disorder, ETOH prior to Hematologic History: Reports: Anemia - Past Surgical History HEENT Surgical History: Reports: Eye Surgery (Bilateral eye surgery as an 10-year -old), Tonsillectomy Other HEENT Surgeries/Procedures: eye muscle shortening previously cross-eyed, wears glasses Neurological Surgical History: Reports: None Musculoskeletal Surgical History: Reports: None Social & Family History - Family History Family Medical History: Noncontributory - Tobacco Use Smoking Status *Q: Unknown Ever Smoked (Nonsmoker) - Caffeine Use Caffeine Use: Reports: None Caffeine Use Comment: probably 1 soda a week - Alcohol Use Alcohol Use History: Yes Alcohol Use Comment: Denies any alcohol use currently. 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.) ED ROS GENERAL - Review of Systems Review Of Systems: See Below Constitutional: Reports: No Symptoms HEENT: Reports: No Symptoms Respiratory: Reports: No Symptoms Cardiovascular: Reports: No Symptoms GI/Abdominal: Reports: No Symptoms : Reports: No Symptoms Musculoskeletal: Reports: Back Pain Skin: Reports: No Symptoms Neurological: Reports: No Symptoms Hematologic/Lymphatic: Reports: No Symptoms Immunologic: Reports: No Symptoms ED EXAM, GENERAL - Physical Exam Exam: See Below Exam Limited By: No Limitations General Appearance: Alert, WD/WN, Moderate Distress Eye Exam: Bilateral Eye: EOMI, Normal Inspection, PERRL Ears: Normal External Exam Ear Exam: Bilateral Ear: Auricle Normal Nose: Normal Inspection, Normal Mucosa, No Blood Throat/Mouth: Normal Inspection, Normal Lips, Normal Oropharynx, Normal Voice, No Airway Compromise Head: Atraumatic, Normocephalic Neck: Normal Inspection, Supple, Non-Tender, Full Range of Motion Respiratory/Chest: No Respiratory Distress, Lungs Clear, Normal Breath Sounds, No Accessory Muscle Use, Chest Non-Tender Cardiovascular: Normal Peripheral Pulses, Regular Rate, Rhythm, No JVD Peripheral Pulses: 2+: Radial (L), Radial (R), Dorsalis Pedis (L), Dorsalis Pedis (R) GI/Abdominal: Normal Bowel Sounds, Soft, Non-Tender, No Mass Back Exam: Normal Inspection, Muscle Spasm, Paraspinal Tenderness (Right side). No: Vertebral Tenderness Extremities: Normal Inspection, Normal Range of Motion, Non-Tender, No Pedal Edema, Normal Capillary Refill Neurological: Alert, Oriented, CN II-XII Intact, Normal Cognition, No Motor/ Sensory Deficits Skin Exam: Warm, Dry, Intact, Normal Color, No Rash Course - Orders/Labs/Meds Meds: Medications Discontinued Medications Generic Name Dose Route Start Last Admin Trade Name Mumtaz PRN Reason Stop Dose Admin Ketorolac Tromethamine 60 mg 02/14/19 19:54 Toradol IM 02/14/19 19:55 ONETIME ONE - Re-Assessments/Exams Free Text/Narrative Re-Assessment/Exam: 02/14/19 19:54: 24-year-old female with acute strain of her mid back and an acute exacerbation of her back pain. She was given Toradol IM in the emergency department and I will send her home with take-home of tramadol. She should continue to use ibuprofen and Tylenol for pain. I have told her that she should not breast feed her infant if she is taking the tramadol. She should follow-up with her doctor in [place] out her back next week. I have advised her that we would not provide her with any further pain medications in regard to her back pain. Departure - Departure Time of Disposition: 20:15 Disposition: Home, Self-Care 01 Condition: Good (Stable) Clinical Impression: Strain of muscle and tendon of back wall of thorax, initial encounter Chronic thoracic back pain Qualifiers: Back pain laterality: midline Qualified Code(s): M54.6 - Pain in thoracic spine - Discharge Information Instructions: Thoracic Strain, [id number], Back Exercises, [id number], Chronic Back Pain, [id number], Pain Medicine Instructions, [id number] Referrals: Bianca Mejia NP [Primary Care Provider] - Additional Instructions: You appear to have an acute strain to your mid back with an exacerbation of chronic mid back pain. You do not have any concerning signs or symptoms at this time. You may take ibuprofen 800 mg by mouth every 8 hours as needed for pain. You may also take Tylenol 1000 mg by mouth every 6 hours as needed for pain. Medication as given for more severe pain (tramadol 50 mg). You should not breast -feed while you are taking the tramadol. You should follow-up with your doctor in [place] about your back this next week. Back to the emergency department for bowel or bladder control problems, fever, leg weakness, abdominal pain or vomiting or any other concerning sign or symptom.
[2019-02-14] MEDS ORDERED: Ketorolac 60 MG/2 ML SDV IM ONE (19:54)
[2019-02-14 22:29] VITALS: BP 108/65; PULSE 79
== END 2019-02-14 20:23 | disposition home or self-care (01) ==
LOC: FB.ED 19:13
DX: S29.012A Strain of muscle and tendon of back wall of thorax, initial encounter (principal); Z91.048 Other nonmedicinal substance allergy status; Z79.899 Other long term (current) drug therapy; X50.0XXA Overexertion from strenuous movement or load, initial encounter
CPT/HCPCS: 96372; 99283; J1885; A9270-GY

== ENCOUNTER 2019-05-12 10:49 | Emergency (ER) | payer MEDICAID ==
--- NOTE | 2019-05-12 10:56 | EDM.PDOC ---
ED HPI GENERAL MEDICAL PROBLEM - General Stated Complaint: STOMACH PAIN, DIZZY Time Seen by Provider: 05/12/19 10:56 Source of Information: Reports: Patient History Limitations: Reports: No Limitations - History of Present Illness INITIAL COMMENTS - FREE TEXT/NARRATIVE: 24-year-old female who has been having problems with intermittent abdominal pain for quite some time. On 05/09/2019 she had an EGD and a colonoscopy performed at [facility] in [place] and she reports that she was told that she had biopsies performed but she does not know what else that they did or how many biopsies that they did. She reports that she felt well until Sunday and on 05/10/2019, she began to feel dizzy and she reports that this was an off-balance and feeling that she was falling kind of sensation that seemed to come on when she was walking or moving and improved with rest. That evening she also began to have some crampy lower abdominal pain that had a sharp shooting pain that went to her upper abdomen. She reports that pain is a 5/10 now but has been a 7/10 at its worst. She has had no nausea or vomiting. She has been able to eat and drink but she has had a decreased appetite. Eating and drinking does not really seem to affect her discomfort. She has had no fevers or chills. She has no headache. She has had no dysuria or hematuria. She has had a bowel movement since the colonoscopy and she has noticed no blood or mucus in the stool. The dizziness seems to have improved but she still has those symptoms and the lower abdominal cramping. There are no other associated signs or symptoms. There are no other modifying factors. 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 (see below) (Nothing) lower abd Pain Score (Numeric/FACES): 3 - Related Data Allergies Allergy/AdvReac Type Severity Reaction Status Date / Time Seasonal Allergy Other Uncoded 02/14/19 22:21 Home Meds: Home Meds Vit Calc,Iron,Folic [ Vitamins] 1 each PO DAILY 11/29/17 [ History] Hyoscyamine Sulfate 0.125 mg PO TID PRN 09/15/18 [History] Past Medical History HEENT History: Reports: Impaired Vision Gastrointestinal History: Reports: Other (See Below) (An as yet undiagnosed intestinal problem that was felt initially to be IBS.) Genitourinary History: Reports: Other (See Below) Other Genitourinary History: chlamydia in 2015 and 2016 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 degenerative disk disease Neurological History: Reports: Concussion, Migraines Psychiatric History: Reports: Anxiety, Depression, Panic Attack, PTSD, Suicidal Ideation, Other (See Below) Other Psychiatric History: borderline personality disorder, ETOH prior to Hematologic History: Reports: Anemia - Past Surgical History HEENT Surgical History: Reports: Eye Surgery (Bilateral eye surgery as an 10-year -old), Tonsillectomy Other HEENT Surgeries/Procedures: eye muscle shortening previously cross-eyed, wears glasses GI Surgical History: Reports: Colonoscopy, EGD Neurological Surgical History: Reports: None Musculoskeletal Surgical History: Reports: None Social & Family History - Family History Family Medical History: Noncontributory - Tobacco Use Smoking Status *Q: Current Every Day Smoker - Caffeine Use Caffeine Use: Reports: None Caffeine Use Comment: probably 1 soda a week - Alcohol Use Alcohol Use History: Yes Alcohol Use Frequency: Monthly 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 Denies: Bloody Stool, Diarrhea, Nausea, Vomiting : Reports: No Symptoms Musculoskeletal: Reports: No Symptoms Skin: Reports: No Symptoms Neurological: Reports: Dizziness. Denies: Headache Hematologic/Lymphatic: Reports: No Symptoms Immunologic: Reports: No Symptoms ED EXAM, GI/ABD - Physical Exam Exam: See Below Exam Limited By: No Limitations General Appearance: Alert, WD/WN, No Apparent Distress Eyes: Bilateral: Normal Appearance, EOMI Ears: Normal External Exam, Hearing Grossly Normal Nose: Normal Inspection, Normal Mucosa, No Blood Throat/Mouth: Normal Inspection, Normal Lips, Normal Oropharynx, Normal Voice, No Airway Compromise Head: Atraumatic, Normocephalic Neck: Normal Inspection, Supple, Non-Tender, Full Range of Motion Respiratory/Chest: No Respiratory Distress, Lungs Clear, Normal Breath Sounds, No Accessory Muscle Use, Chest Non-Tender Cardiovascular: Normal Peripheral Pulses, Regular Rate, Rhythm, No JVD GI/Abdominal Exam: Normal Bowel Sounds, Soft, No Mass, Tender (Along lower abdomen and right mid abdomen) Back Exam: Normal Inspection, Full Range of Motion. No: CVA Tenderness (R), CVA Tenderness (L) Extremities: Normal Inspection, Normal Range of Motion, Non-Tender, Normal Capillary Refill, No Pedal Edema Neurological: Alert, Oriented, CN II-XII Intact, Normal Cognition, No Motor/ Sensory Deficits Skin Exam: Warm, Dry, Intact, Normal Color, No Rash Course - Vital Signs Last Recorded V/S: Last Vital Signs Temp 36.6 C 05/12/19 10:49 Pulse 64 05/12/19 10:49 Resp 16 05/12/19 10:49 BP 127/56 L 05/12/19 10:49 Pulse Ox 99 05/12/19 10:49 - Orders/Labs/Meds Orders: Active Orders 24 hr Category Date Time Status Abdomen Pelvis w Cont [CT] Stat Exams 05/12/19 11:47 Taken Sodium Chloride 0.9% [Saline Flush] Med 05/12/19 11:11 Active 10 ml FLUSH ASDIRECTED PRN Peripheral IV Insertion Adult [OM.PC] Routine Oth 05/12/19 11:11 Ordered Medication Orders Sodium Chloride (Saline Flush) 10 ml FLUSH ASDIRECTED PRN PRN Reason: Keep Vein Open Last Admin: 05/12/19 11:28 Dose: 10 ml Labs: Laboratory Tests 05/12/19 05/12/19 05/12/19 Range/Units 11:11 11:11 11:25 WBC 7.1 (4.5-12.0) X10-3/uL RBC 4.64 (3.23-5.20) x10(6)uL Hgb 13.7 (11.5-15.5) g/dL Hct 40.1 (30.0-51.3) % MCV 86.5 (80-96) fL MCH 29.4 (27.7-33.6) pg MCHC 34.0 (32.2-35.4) g/dL RDW 12.7 (11.5-15.5) % Plt Count 252 (125-369) X10(3)uL MPV 10.5 H (7.4-10.4) fL Neut % (Auto) 60.7 (46-82) % Lymph % (Auto) 28.0 (13-37) % [place] % (Auto) 8.0 (4-12) % Eos % (Auto) 3 (1.0-5.0) % Baso % (Auto) 0 (0-2) % Neut # (Auto) 4.3 (1.6-8.3) # Lymph # (Auto) 2.0 (0.6-5.0) # [place] # (Auto) 0.6 (0.0-1.3) # Eos # (Auto) 0.2 (0.0-0.8) # Baso # (Auto) 0.0 (0.0-0.2) # Sodium (135-145) mmol/L Potassium (3.5-5.3) mmol/L Chloride (100-110) mmol/L Carbon Dioxide (21-32) mmol/L BUN (7-18) mg/dL Creatinine (0.55-1.02) mg/dL Est Cr Clr Drug Dosing mL/min Estimated GFR (MDRD) (>60) BUN/Creatinine Ratio (9-20) Glucose (80-116) mg/dL Calcium (8.6-10.2) mg/dL Magnesium (1.8-2.5) mg/dL Total Bilirubin (0.1-1.3) mg/dL AST (5-25) IU/L ALT (12-36) U/L Alkaline Phosphatase (56-112) IU/L C-Reactive Protein (0.5-0.9) mg/dL Total Protein (6.0-8.0) g/dL Albumin (3.5-5.2) g/dL Globulin g/dL Albumin/Globulin Ratio Lipase (73-393) U/L Urine Color Yellow (YELLOW) Urine Appearance Slightly cloudy (CLEAR) Urine pH 5.0 (5.0-6.5) Ur Specific [place] 1.020 (1.010-1.025) Urine Protein Negative (NEGATIVE) mg/dL Urine Glucose (UA) Normal (NORMAL) mg/dL Urine Ketones Negative (NEGATIVE) mg/dL Urine Occult Blood Moderate H (NEGATIVE) Urine Nitrite Negative (NEGATIVE) Urine Bilirubin Negative (NEGATIVE) Urine Urobilinogen Normal (NEGATIVE) mg/dL Ur Leukocyte Esterase Negative (NEGATIVE) Urine RBC 0-5 (0-5) Urine WBC 0-5 (0-5) Ur Squamous Epith Cells Moderate H (NS,R,O) Urine Bacteria Many H (NS) Urine HCG, Qual Negative (NEGATIVE) 05/12/19 05/12/19 Range/Units 11:25 11:25 WBC (4.5-12.0) X10-3/uL RBC (3.23-5.20) x10(6)uL Hgb (11.5-15.5) g/dL Hct (30.0-51.3) % MCV (80-96) fL MCH (27.7-33.6) pg MCHC (32.2-35.4) g/dL RDW (11.5-15.5) % Plt Count (125-369) X10(3)uL MPV (7.4-10.4) fL Neut % (Auto) (46-82) % Lymph % (Auto) (13-37) % [place] % (Auto) (4-12) % Eos % (Auto) (1.0-5.0) % Baso % (Auto) (0-2) % Neut # (Auto) (1.6-8.3) # Lymph # (Auto) (0.6-5.0) # [place] # (Auto) (0.0-1.3) # Eos # (Auto) (0.0-0.8) # Baso # (Auto) (0.0-0.2) # Sodium 142 (135-145) mmol/L Potassium 4.1 (3.5-5.3) mmol/L Chloride 106 D (100-110) mmol/L Carbon Dioxide 28 (21-32) mmol/L BUN 15 (7-18) mg/dL Creatinine 0.8 (0.55-1.02) mg/dL Est Cr Clr Drug Dosing 119.28 mL/min Estimated GFR (MDRD) > 60 (>60) BUN/Creatinine Ratio 18.8 (9-20) Glucose 93 (80-116) mg/dL Calcium 8.9 (8.6-10.2) mg/dL Magnesium 1.9 (1.8-2.5) mg/dL Total Bilirubin 0.4 (0.1-1.3) mg/dL AST 13 D (5-25) IU/L ALT 27 D (12-36) U/L Alkaline Phosphatase 72 (56-112) IU/L C-Reactive Protein 0.3 L (0.5-0.9) mg/dL Total Protein 7.1 (6.0-8.0) g/dL Albumin 3.6 (3.5-5.2) g/dL Globulin 3.5 g/dL Albumin/Globulin Ratio 1.0 Lipase 63 L (73-393) U/L Urine Color (YELLOW) Urine Appearance (CLEAR) Urine pH (5.0-6.5) Ur Specific [place] (1.010-1.025) Urine Protein (NEGATIVE) mg/dL Urine Glucose (UA) (NORMAL) mg/dL Urine Ketones (NEGATIVE) mg/dL Urine Occult Blood (NEGATIVE) Urine Nitrite (NEGATIVE) Urine Bilirubin (NEGATIVE) Urine Urobilinogen (NEGATIVE) mg/dL Ur Leukocyte Esterase (NEGATIVE) Urine RBC (0-5) Urine WBC (0-5) Ur Squamous Epith Cells (NS,R,O) Urine Bacteria (NS) Urine HCG, Qual (NEGATIVE) Meds: Medications Generic Name Dose Route Start Last Admin Trade Name Freq PRN Reason Stop Dose Admin Sodium Chloride 10 ml 05/12/19 11:11 05/12/19 11:28 Saline Flush FLUSH 10 ml ASDIRECTED PRN Administration Keep Vein Open Discontinued Medications Generic Name Dose Route Start Last Admin Trade Name Freq PRN Reason Stop Dose Admin Sodium Chloride 1,000 mls @ 999 mls/hr 05/12/19 11:12 05/12/19 11:22 Normal Saline IV 05/12/19 12:12 999 mls/hr .BOLUS ONE Administration Iopamidol 100 ml 05/12/19 12:10 Isovue-370 (76%) IV 05/12/19 12:11 . DIRECTED ONE - Radiology Interpretation Free Text/Narrative:: CT scan of abdomen and pelvis showed no acute inflammatory changes, free air or free fluid and it showed a normal appendix per the radiologist at [facility]. - Re-Assessments/Exams Free Text/Narrative Re-Assessment/Exam: 05/12/19 11:45: The patient's urine test was negative. With the patient's recent colonoscopy and the potential for complication with small perforation associated with colonoscopy I will send the patient over for CT of her abdomen and pelvis with IV contrast. I have discussed this with the patient previously and she is in agreement with this plan. 05/12/19 13:33: The CT scan of the patient's abdomen and pelvis was negative per the radiologist's at [facility]. The patient's blood tests and urine tests are reassuringly normal. She has received 1 L bolus of normal saline and is feeling somewhat improved. I am unsure why she is having the dizziness. It may be just some mild dehydration related to her previous colonoscopy. The abdominal pain could either be from stretching of her intestines from the colonoscopy or related to her previous abdominal pain issues that are yet without a definitive diagnosis. However, with the normal blood tests and the negative CT, I feel that there is nothing serious at this time. Appropriate precautions and reasons for return to the emergency department were discussed with the patient and the patient will be discharged. She is in agreement with the plans for discharge. Departure - Departure Time of Disposition: 13:40 Disposition: Home, Self-Care 01 Condition: Good Clinical Impression: Dizziness, Abdominal pain of unknown etiology, Mild dehydration - Discharge Information Instructions: Abdominal Pain, Adult, [id number], Dizziness, [id number], Dehydration, Adult Referrals: Bianca Mejia NP [Primary Care Provider] - Additional Instructions: Your blood tests, urine tests and the CT scan of your abdomen and pelvis showed no acute abnormalities. I am unsure why you are having the dizziness. It may be related to some mild dehydration or it could be related to a viral type illness. You should rest. You should drink plenty of fluids. This should be self -limited and resolve within the next 24-36 hours. I am also unsure why you are having the abdominal pain but it does not appear to be related to anything serious at this point. You should follow-up with your primary provider's week or next. Back to the emergency department for unrelenting vomiting, worsening abdominal pain, high fever or any other concerning sign or symptom. - My Orders Last 24 Hours: My Active Orders 05/12/19 11:11 Sodium Chloride 0.9% [Saline Flush] 10 ml FLUSH ASDIRECTED PRN Peripheral IV Insertion Adult [OM.PC] Routine 05/12/19 11:47 Abdomen Pelvis w Cont [CT] Stat - Assessment/Plan Last 24 Hours: My Active Orders 05/12/19 11:11 Sodium Chloride 0.9% [Saline Flush] 10 ml FLUSH ASDIRECTED PRN Peripheral IV Insertion Adult [OM.PC] Routine 05/12/19 11:47 Abdomen Pelvis w Cont [CT] Stat
[2019-05-12] MEDS ORDERED: Sodium Chloride 0.9% 10 ML Syringe FLUSH PRN (11:11)
[2019-05-12] MEDS ORDERED: Sodium Chloride 0.9% 1,000 ML IV ONE (11:12)
[2019-05-12] MEDS ORDERED: Iopamidol 755 Mg/ML 100 ML Bottle IV ONE (12:10)
[2019-05-12 13:40] VITALS: BP 124/66; PULSE 68
== END 2019-05-12 13:45 | disposition home or self-care (01) ==
LOC: FB.ED 10:49
DX: E86.0 Dehydration (principal); R42 Dizziness and giddiness; R10.30 Lower abdominal pain, unspecified; F17.200 Nicotine dependence, unspecified, uncomplicated
CPT/HCPCS: 36415; 74177; 80053; 81001; 81025; 83690; 83735; 85025; 86140; 96360; 99284; J7030; Q9967

== ENCOUNTER 2019-05-31 07:00 | Emergency (ER) | payer MEDICAID ==
--- NOTE | 2019-05-31 08:03 | EDM.PDOC ---
ED HPI GENERAL MEDICAL PROBLEM - General Chief Complaint: Abdominal Pain Stated Complaint: ABD PAIN, RIGHT SIDE Time Seen by Provider: 05/31/19 07:30 Source of Information: Reports: Patient History Limitations: Reports: No Limitations - History of Present Illness INITIAL COMMENTS - FREE TEXT/NARRATIVE: Patient presented to the ED because of 1 day h/o RLQ pain. The pain is sharp,9/ 10 with associated nausea but no vomiting. Denies having any fever or chills. No urinary symptoms or changes in bowel movement. She has a h/o celiac dse and she thought that she might have eaten something that cause the flare up. 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 degenerative disk disease Neurological History: Reports: Concussion, Migraines Psychiatric History: Reports: Anxiety, Depression, Panic Attack, PTSD, Suicidal Ideation, Other (See Below) Other Psychiatric History: borderline personality disorder, ETOH prior to Hematologic History: Reports: Anemia - Past Surgical History HEENT Surgical History: Reports: Eye Surgery, Tonsillectomy Other HEENT Surgeries/Procedures: eye muscle shortening previously cross-eyed, wears glasses GI Surgical History: Reports: Colonoscopy, EGD Neurological Surgical History: Reports: None Musculoskeletal Surgical History: Reports: None Social & Family History - Family History Family Medical History: Noncontributory - Tobacco Use Smoking Status *Q: Current Every Day Smoker Years of Tobacco use: 11 Packs/Tins Daily: 0.2 - Caffeine Use Caffeine Use: Reports: Tea Caffeine Use Comment: probably 1 soda a week - Recreational Drug Use Recreational Drug Use: No 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 Denies: Vomiting : Reports: No Symptoms Musculoskeletal: Reports: No Symptoms, Neck Pain Skin: Reports: No Symptoms Psychiatric: Reports: No Symptoms ED EXAM, GI/ABD - Physical Exam Exam: See Below Exam Limited By: No Limitations General Appearance: Alert, No Apparent Distress Ears: Normal External Exam, Normal Canal, Hearing Grossly Normal, Normal TMs Nose: Normal Inspection, Normal Mucosa, No Blood Throat/Mouth: Normal Inspection, Normal Lips, Normal Teeth, Normal Gums, Normal Oropharynx Head: Atraumatic, Normocephalic Neck: Normal Inspection, Supple, Non-Tender, Full Range of Motion Respiratory/Chest: No Respiratory Distress, Lungs Clear, Normal Breath Sounds Cardiovascular: Normal Peripheral Pulses, Regular Rate, Rhythm, No Edema, No Gallop, No JVD, No Murmur GI/Abdominal Exam: Normal Bowel Sounds, Soft, No Organomegaly, No Distention, No Abnormal Bruit, No Mass, Pelvis Stable, Other (tenderness RLQ) (Female) Exam: Normal External Exam, Normal Speculum Exam, Normal Bimanual Exam Course - Vital Signs Text/Narrative:: Labs reviewed and discussed with patient Saline bolus zofran 4 mg IV Toradol [address] abd/pevis-see result Last Recorded V/S: Last Vital Signs Temp 36.7 C 05/31/19 07:02 Pulse 73 05/31/19 07:02 Resp 16 05/31/19 07:02 BP 122/66 05/31/19 07:02 Pulse Ox 98 05/31/19 07:02 - Orders/Labs/Meds Orders: Active Orders 24 hr Category Date Time Status Abdomen Pelvis w Cont [CT] Stat Exams 05/31/19 08:04 Taken Sodium Chloride 0.9% [Saline Flush] Med 05/31/19 07:38 Active 10 ml FLUSH ASDIRECTED PRN Saline Lock Insert [OM.PC] Routine Oth 05/31/19 07:38 Ordered Medication Orders Sodium Chloride (Saline Flush) 10 ml FLUSH ASDIRECTED PRN PRN Reason: Keep Vein Open Last Admin: 05/31/19 08:05 Dose: 10 ml Labs: Laboratory Tests 05/31/19 05/31/19 05/31/19 Range/Units 07:55 07:55 07:55 WBC 6.5 (4.5-12.0) X10-3/uL RBC 5.02 (3.23-5.20) x10(6)uL Hgb 14.7 (11.5-15.5) g/dL Hct 43.4 (30.0-51.3) % MCV 86.5 (80-96) fL MCH 29.4 (27.7-33.6) pg MCHC 34.0 (32.2-35.4) g/dL RDW 12.7 (11.5-15.5) % Plt Count 243 (125-369) X10(3)uL MPV 10.2 (7.4-10.4) fL Neut % (Auto) 62.5 (46-82) % Lymph % (Auto) 28.9 (13-37) % [place] % (Auto) 5.7 (4-12) % Eos % (Auto) 3 (1.0-5.0) % Baso % (Auto) 0 (0-2) % Neut # (Auto) 3.9 (1.6-8.3) # Lymph # (Auto) 1.9 (0.6-5.0) # [place] # (Auto) 0.4 (0.0-1.3) # Eos # (Auto) 0.2 (0.0-0.8) # Baso # (Auto) 0.0 (0.0-0.2) # Sodium 142 (135-145) mmol/L Potassium 4.1 (3.5-5.3) mmol/L Chloride 106 (100-110) mmol/L Carbon Dioxide 27 (21-32) mmol/L BUN 12 (7-18) mg/dL Creatinine 0.9 (0.55-1.02) mg/dL Est Cr Clr Drug Dosing 106.03 mL/min Estimated GFR (MDRD) > 60 (>60) BUN/Creatinine Ratio 13.3 (9-20) Glucose 101 (80-116) mg/dL Calcium 8.9 (8.6-10.2) mg/dL Total Bilirubin 0.3 (0.1-1.3) mg/dL AST 15 D (5-25) IU/L ALT 28 (12-36) U/L Alkaline Phosphatase 76 (56-112) IU/L Total Protein 7.6 (6.0-8.0) g/dL Albumin 4.0 (3.5-5.2) g/dL Globulin 3.6 g/dL Albumin/Globulin Ratio 1.1 Amylase 22 L (25-115) U/L Lipase 72 L (73-393) U/L Urine Color (YELLOW) Urine Appearance (CLEAR) Urine pH (5.0-6.5) Ur Specific [place] (1.010-1.025) Urine Protein (NEGATIVE) mg/dL Urine Glucose (UA) (NORMAL) mg/dL Urine Ketones (NEGATIVE) mg/dL Urine Occult Blood (NEGATIVE) Urine Nitrite (NEGATIVE) Urine Bilirubin (NEGATIVE) Urine Urobilinogen (NEGATIVE) mg/dL Ur Leukocyte Esterase (NEGATIVE) Urine RBC (0-5) Urine WBC (0-5) Ur Squamous Epith Cells (NS,R,O) Urine Bacteria (NS) Urine HCG, Qual (NEGATIVE) 05/31/19 05/31/19 Range/Units 08:07 08:07 WBC (4.5-12.0) X10-3/uL RBC (3.23-5.20) x10(6)uL Hgb (11.5-15.5) g/dL Hct (30.0-51.3) % MCV (80-96) fL MCH (27.7-33.6) pg MCHC (32.2-35.4) g/dL RDW (11.5-15.5) % Plt Count (125-369) X10(3)uL MPV (7.4-10.4) fL Neut % (Auto) (46-82) % Lymph % (Auto) (13-37) % [place] % (Auto) (4-12) % Eos % (Auto) (1.0-5.0) % Baso % (Auto) (0-2) % Neut # (Auto) (1.6-8.3) # Lymph # (Auto) (0.6-5.0) # [place] # (Auto) (0.0-1.3) # Eos # (Auto) (0.0-0.8) # Baso # (Auto) (0.0-0.2) # Sodium (135-145) mmol/L Potassium (3.5-5.3) mmol/L Chloride (100-110) mmol/L Carbon Dioxide (21-32) mmol/L BUN (7-18) mg/dL Creatinine (0.55-1.02) mg/dL Est Cr Clr Drug Dosing mL/min Estimated GFR (MDRD) (>60) BUN/Creatinine Ratio (9-20) Glucose (80-116) mg/dL Calcium (8.6-10.2) mg/dL Total Bilirubin (0.1-1.3) mg/dL AST (5-25) IU/L ALT (12-36) U/L Alkaline Phosphatase (56-112) IU/L Total Protein (6.0-8.0) g/dL Albumin (3.5-5.2) g/dL Globulin g/dL Albumin/Globulin Ratio Amylase (25-115) U/L Lipase (73-393) U/L Urine Color Red (YELLOW) Urine Appearance Cloudy (CLEAR) Urine pH 6.0 (5.0-6.5) Ur Specific [place] 1.020 (1.010-1.025) Urine Protein 100 H (NEGATIVE) mg/dL Urine Glucose (UA) Normal (NORMAL) mg/dL Urine Ketones Negative (NEGATIVE) mg/dL Urine Occult Blood Large H (NEGATIVE) Urine Nitrite Negative (NEGATIVE) Urine Bilirubin Negative (NEGATIVE) Urine Urobilinogen Normal (NEGATIVE) mg/dL Ur Leukocyte Esterase Negative (NEGATIVE) Urine RBC Packed H (0-5) Urine WBC 0-5 (0-5) Ur Squamous Epith Cells Moderate H (NS,R,O) Urine Bacteria Many H (NS) Urine HCG, Qual Negative (NEGATIVE) Meds: Medications Generic Name Dose Route Start Last Admin Trade Name Freq PRN Reason Stop Dose Admin Sodium Chloride 10 ml 05/31/19 07:38 05/31/19 08:05 Saline Flush FLUSH 10 ml ASDIRECTED PRN Administration Keep Vein Open Discontinued Medications Generic Name Dose Route Start Last Admin Trade Name Freq PRN Reason Stop Dose Admin Sodium Chloride 1,000 mls @ 999 mls/hr 05/31/19 07:40 05/31/19 08:06 Normal Saline IV 05/31/19 08:40 999 mls/hr .BOLUS ONE Administration Iopamidol 100 ml 05/31/19 08:39 05/31/19 08:52 Isovue-370 (76%) IV 05/31/19 08:40 100 ml . DIRECTED ONE Administration Ketorolac Tromethamine 30 mg 05/31/19 07:40 05/31/19 08:10 Toradol IVPUSH 05/31/19 07:41 30 mg ONETIME ONE Administration Ondansetron HCl 4 mg 05/31/19 07:40 05/31/19 08:11 Zofran IVPUSH 05/31/19 07:41 4 mg ONETIME ONE Administration Departure - Departure Time of Disposition: 09:45 Disposition: Home, Self-Care 01 Condition: Good Clinical Impression: Urachal cyst - Discharge Information Referrals: Bianca Mejia NP [Primary Care Provider] - Forms: ED Department Discharge Additional Instructions: please read discharge instructions on urachal cyst Take ibuprofen 800 mg with tylenol 1000 mg every 8 hours as needed for pain Zofran ODT 4 mg every 4 hours as needed for pain Follow up with your doctor so you can be referred to see a urologist for your urachal cyst - My Orders Last 24 Hours: My Active Orders 05/31/19 07:38 Sodium Chloride 0.9% [Saline Flush] 10 ml FLUSH ASDIRECTED PRN Saline Lock Insert [OM.PC] Routine 05/31/19 08:04 Abdomen Pelvis w Cont [CT] Stat - Assessment/Plan Last 24 Hours: My Active Orders 05/31/19 07:38 Sodium Chloride 0.9% [Saline Flush] 10 ml FLUSH ASDIRECTED PRN Saline Lock Insert [OM.PC] Routine 05/31/19 08:04 Abdomen Pelvis w Cont [CT] Stat
[2019-05-31] MEDS: Sodium Chloride 0.9% 10 ML Syringe FLUSH PRN (08:05)
[2019-05-31] MEDS: Sodium Chloride 0.9% 1,000 ML IV ONE (08:06)
[2019-05-31] MEDS: Ketorolac 30 MG/ML SDV IVPUSH ONE (08:10)
[2019-05-31] MEDS: Ondansetron 4 MG/2 ML SDV IVPUSH ONE (08:11)
[2019-05-31] MEDS: Iopamidol 755 Mg/ML 100 ML Bottle IV ONE (08:52)
[2019-05-31 10:15] VITALS: BP 125/58; PULSE 65
== END 2019-05-31 10:06 | disposition home or self-care (01) ==
LOC: FB.ED 07:00
DX: Q64.4 Malformation of urachus (principal); F17.210 Nicotine dependence, cigarettes, uncomplicated; Z91.09 Other allergy status, other than to drugs and biological substances
CPT/HCPCS: 74177; 80053; 81001; 81025; 82150; 83690; 85025; 96361; 96374; 96375; 99284; J1885; J2405; J7030; Q9967

== ENCOUNTER 2019-11-24 18:10 | Emergency (ER) | payer MEDICAID, OTHER ==
[2019-11-24] MEDS ORDERED: Sodium Chloride 0.9% 10 ML Syringe FLUSH PRN (19:12)
[2019-11-24] MEDS ORDERED: Ondansetron 4 MG/2 ML SDV IVPUSH ONE (19:13)
[2019-11-24] MEDS ORDERED: Sodium Chloride 0.9% 1,000 ML IV SCH (19:15)
[2019-11-24] MEDS ORDERED: Ketorolac 30 MG/ML SDV IVPUSH ONE (19:15)
[2019-11-24] MEDS ORDERED: Iopamidol 755 Mg/ML 100 ML Bottle IV ONE (19:44)
--- NOTE | 2019-11-24 20:22 | EDM.PDOC ---
ED HPI GENERAL MEDICAL PROBLEM - General Chief Complaint: Abdominal Pain Stated Complaint: FEVER Time Seen by Provider: 11/24/19 19:30 Source of Information: Reports: Patient History Limitations: Reports: No Limitations - History of Present Illness INITIAL COMMENTS - FREE TEXT/NARRATIVE: Patient presented to the ED because of abdominal pain x 3 days. The pain is sharp,6/10, and cramping,diffuse, with associated nausea but no vomiting. She also c/o dysuria, denies any flank pain. Today she has some loose stools whic is non-bloody. - Related Data Allergies Allergy/AdvReac Type Severity Reaction Status Date / Time Seasonal Allergy Other Uncoded 05/31/19 07:25 Home Meds: Home Meds Ibuprofen 800 mg PO Q8H PRN #30 tablet 05/31/19 [Rx] Ondansetron [Zofran ODT] 4 mg PO Q4H PRN #7 tab.dis 05/31/19 [Rx] Sulfamethoxazole/Trimethoprim [Bactrim Ds Tablet] 1 each PO BID #6 tablet [Rx] Past Medical History HEENT History: Reports: Impaired Vision Gastrointestinal History: Reports: Celiac Disease, Other (See Below) Other Gastrointestinal History: gluten intolerance Genitourinary History: Reports: Other (See Below) Other Genitourinary History: chlamydia in 2014 and 2016 [employer] History: Reports: Polycystic Ovaries Other [employer] History: currently Musculoskeletal History: Reports: Arthritis, Back Pain, Chronic, Fracture, Other (See Below) Other Musculoskeletal History: fx L wrist, bilat carpal tunnel. degenerative disk disease Neurological History: Reports: Concussion, Migraines Psychiatric History: Reports: Anxiety, Depression, Panic Attack, PTSD, Suicidal Ideation, Other (See Below) Other Psychiatric History: borderline personality disorder, ETOH prior to Hematologic History: Reports: Anemia - Infectious Disease History Infectious Disease History: Reports: None - Past Surgical History HEENT Surgical History: Reports: Eye Surgery, Tonsillectomy Other HEENT Surgeries/Procedures: eye muscle shortening previously cross-eyed, wears glasses GI Surgical History: Reports: Colonoscopy, EGD Neurological Surgical History: Reports: None Musculoskeletal Surgical History: Reports: None Social & Family History - Family History Family Medical History: Noncontributory - Caffeine Use Caffeine Use: Reports: Tea Caffeine Use Comment: probably 1 soda a week 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.) ED ROS GENERAL - Review of Systems Review Of Systems: See Below Constitutional: Reports: No Symptoms HEENT: Reports: No Symptoms Respiratory: Reports: No Symptoms Cardiovascular: Reports: No Symptoms Endocrine: Reports: No Symptoms GI/Abdominal: Reports: Abdominal Pain, Nausea, Vomiting : Reports: Dysuria Musculoskeletal: Reports: No Symptoms Skin: Reports: No Symptoms Neurological: Reports: No Symptoms Psychiatric: Reports: No Symptoms ED EXAM, GI/ABD - Physical Exam Exam: See Below Exam Limited By: No Limitations General Appearance: Alert, No Apparent Distress Ears: Normal External Exam Nose: Normal Inspection, Normal Mucosa Throat/Mouth: Normal Inspection, Normal Lips Head: Atraumatic, Normocephalic Neck: Normal Inspection, Supple, Non-Tender Respiratory/Chest: No Respiratory Distress, Lungs Clear, Normal Breath Sounds Cardiovascular: Normal Peripheral Pulses, Regular Rate, Rhythm, No Edema GI/Abdominal Exam: Normal Bowel Sounds, Soft, Non-Tender, No Organomegaly Back Exam: Normal Inspection, Full Range of Motion Extremities: Normal Inspection, Normal Range of Motion, Non-Tender Neurological: Alert, Oriented, CN II-XII Intact, Normal Cognition, Normal Gait Psychiatric: Normal Affect Skin Exam: Warm, Dry, Normal Color, No Rash Lymphatic: No Adenopathy Course - Vital Signs Text/Narrative:: Labs reviewed and discussed with patient and verbalized full understanding CT abd/pelvis-see result NS 1 L bolus toradol 30mg iV x1 morphine 2 mg IV x1 Phenergan 25 mg IV x1 zofran 4 mg IV x1 Last Recorded V/S: Last Vital Signs Temp 37.5 C 11/24/19 18:10 Pulse 90 11/24/19 18:10 Resp 18 11/24/19 18:10 BP 122/51 L 11/24/19 18:10 Pulse Ox 98 11/24/19 18:10 - Orders/Labs/Meds Orders: Active Orders 24 hr Category Date Time Status Abdomen Pelvis w Cont [CT] Stat Exams 11/24/19 19:14 Taken Sodium Chloride 0.9% [Normal Saline] 1,000 ml Med 11/24/19 19:15 Active IV ASDIRECTED Sodium Chloride 0.9% [Normal Saline] 50 ml Med 11/24/19 20:54 Active IV ONETIME Sodium Chloride 0.9% [Saline Flush] Med 11/24/19 19:12 Active 10 ml FLUSH ASDIRECTED PRN Saline Lock Insert [OM.PC] Routine Oth 11/24/19 19:12 Ordered Medication Orders Sodium Chloride (Normal Saline) 1,000 mls @ 999 mls/hr IV ASDIRECTED EDA Last Admin: 11/24/19 19:32 Dose: 999 mls/hr Sodium Chloride (Normal Saline) 50 mls @ 100 mls/hr IV ONETIME ONE Stop: 11/24/19 21:23 Sodium Chloride (Saline Flush) 10 ml FLUSH ASDIRECTED PRN PRN Reason: Keep Vein Open Last Admin: 11/24/19 20:45 Dose: 10 ml Labs: Laboratory Tests 11/24/19 11/24/19 11/24/19 Range/Units 18:29 18:29 18:50 WBC 5.5 (4.5-12.0) X10-3/uL RBC 5.02 (3.23-5.20) x10(6)uL Hgb 15.1 (11.5-15.5) g/dL Hct 43.8 (30.0-51.3) % MCV 87.3 (80-96) fL MCH 30.0 (27.7-33.6) pg MCHC 34.4 (32.2-35.4) g/dL RDW 12.7 (11.5-15.5) % Plt Count 232 (125-369) X10(3)uL MPV 9.5 (7.4-10.4) fL Neut % (Auto) 77.3 (46-82) % Lymph % (Auto) 15.9 (13-37) % [place] % (Auto) 5.7 (4-12) % Eos % (Auto) 0 L (1.0-5.0) % Baso % (Auto) 1 (0-2) % Neut # (Auto) 4.3 (1.6-8.3) # Lymph # (Auto) 0.9 (0.6-5.0) # [place] # (Auto) 0.3 (0.0-1.3) # Eos # (Auto) 0.0 (0.0-0.8) # Baso # (Auto) 0.0 (0.0-0.2) # Sodium (135-145) mmol/L Potassium (3.5-5.3) mmol/L Chloride (100-110) mmol/L Carbon Dioxide (21-32) mmol/L BUN (7-18) mg/dL Creatinine (0.55-1.02) mg/dL Est Cr Clr Drug Dosing Estimated GFR (MDRD) (>60) BUN/Creatinine Ratio (9-20) Glucose (80-116) mg/dL Calcium (8.6-10.2) mg/dL Total Bilirubin (0.1-1.3) mg/dL AST (5-25) IU/L ALT (12-36) U/L Alkaline Phosphatase (56-112) IU/L Total Protein (6.0-8.0) g/dL Albumin (3.5-5.2) g/dL Globulin g/dL Albumin/Globulin Ratio Lipase (73-393) U/L Urine Color Yellow (YELLOW) Urine Appearance Clear (CLEAR) Urine pH 5.0 (5.0-6.5) Ur Specific [place] 1.020 (1.010-1.025) Urine Protein Negative (NEGATIVE) mg/dL Urine Glucose (UA) Normal (NORMAL) mg/dL Urine Ketones Negative (NEGATIVE) mg/dL Urine Occult Blood Moderate H (NEGATIVE) Urine Nitrite Negative (NEGATIVE) Urine Bilirubin Negative (NEGATIVE) Urine Urobilinogen Normal (NEGATIVE) mg/dL Ur Leukocyte Esterase Negative (NEGATIVE) Urine RBC 0-5 (0-5) Urine WBC 0-5 (0-5) Ur Squamous Epith Cells Occasional (NS,R,O) Urine Bacteria Rare H (NS) Urine HCG, Qual Negative (NEGATIVE) 11/24/19 11/24/19 Range/Units 18:50 18:50 WBC (4.5-12.0) X10-3/uL RBC (3.23-5.20) x10(6)uL Hgb (11.5-15.5) g/dL Hct (30.0-51.3) % MCV (80-96) fL MCH (27.7-33.6) pg MCHC (32.2-35.4) g/dL RDW (11.5-15.5) % Plt Count (125-369) X10(3)uL MPV (7.4-10.4) fL Neut % (Auto) (46-82) % Lymph % (Auto) (13-37) % [place] % (Auto) (4-12) % Eos % (Auto) (1.0-5.0) % Baso % (Auto) (0-2) % Neut # (Auto) (1.6-8.3) # Lymph # (Auto) (0.6-5.0) # [place] # (Auto) (0.0-1.3) # Eos # (Auto) (0.0-0.8) # Baso # (Auto) (0.0-0.2) # Sodium 140 (135-145) mmol/L Potassium 3.5 (3.5-5.3) mmol/L Chloride 103 (100-110) mmol/L Carbon Dioxide 27 (21-32) mmol/L BUN 11 (7-18) mg/dL Creatinine 1.0 (0.55-1.02) mg/dL Est Cr Clr Drug Dosing TNP Estimated GFR (MDRD) > 60 (>60) BUN/Creatinine Ratio 11.0 (9-20) Glucose 96 (80-116) mg/dL Calcium 9.1 (8.6-10.2) mg/dL Total Bilirubin 0.3 (0.1-1.3) mg/dL AST 22 D (5-25) IU/L ALT 29 (12-36) U/L Alkaline Phosphatase 76 (56-112) IU/L Total Protein 7.7 (6.0-8.0) g/dL Albumin 3.8 (3.5-5.2) g/dL Globulin 3.9 g/dL Albumin/Globulin Ratio 1.0 Lipase 64 L (73-393) U/L Urine Color (YELLOW) Urine Appearance (CLEAR) Urine pH (5.0-6.5) Ur Specific [place] (1.010-1.025) Urine Protein (NEGATIVE) mg/dL Urine Glucose (UA) (NORMAL) mg/dL Urine Ketones (NEGATIVE) mg/dL Urine Occult Blood (NEGATIVE) Urine Nitrite (NEGATIVE) Urine Bilirubin (NEGATIVE) Urine Urobilinogen (NEGATIVE) mg/dL Ur Leukocyte Esterase (NEGATIVE) Urine RBC (0-5) Urine WBC (0-5) Ur Squamous Epith Cells (NS,R,O) Urine Bacteria (NS) Urine HCG, Qual (NEGATIVE) Meds: Medications Generic Name Dose Route Start Last Admin Trade Name Freq PRN Reason Stop Dose Admin Sodium Chloride 1,000 mls @ 999 mls/hr 11/24/19 19:15 11/24/19 19:32 Normal Saline IV 999 mls/hr ASDIRECTED EDA Administration Sodium Chloride 50 mls @ 100 mls/hr 11/24/19 20:54 Normal Saline IV 11/24/19 21:23 ONETIME ONE Sodium Chloride 10 ml 11/24/19 19:12 11/24/19 20:45 Saline Flush FLUSH 10 ml ASDIRECTED PRN Administration Keep Vein Open Discontinued Medications Generic Name Dose Route Start Last Admin Trade Name Freq PRN Reason Stop Dose Admin Sodium Chloride Confirm 11/24/19 20:50 Normal Saline Administered 11/24/19 20:51 Dose 50 mls @ as directed .ROUTE .STK-MED ONE Iopamidol 100 ml 11/24/19 19:44 11/24/19 20:03 Isovue-370 (76%) IV 11/24/19 19:45 100 ml . DIRECTED ONE Administration Ketorolac Tromethamine 30 mg 11/24/19 19:15 11/24/19 19:32 Toradol IVPUSH 11/24/19 19:16 30 mg ONETIME ONE Administration Morphine Sulfate 2 mg 11/24/19 20:43 11/24/19 20:51 Morphine IVPUSH 11/24/19 20:44 2 mg ONETIME ONE Administration Ondansetron HCl 4 mg 11/24/19 19:13 11/24/19 19:32 Zofran IVPUSH 11/24/19 19:14 4 mg ONETIME ONE Administration Promethazine HCl 25 mg 11/24/19 20:43 11/24/19 20:51 Phenergan IV 11/24/19 20:44 25 mg NOW STA Administration Trimethoprim/Sulfamethoxazole 1 tab 11/24/19 20:49 Septra Ds PO 11/24/19 20:50 NOW STA Departure - Departure Time of Disposition: 21:00 Disposition: Home, Self-Care 01 Condition: Good Clinical Impression: Gastroenteritis, UTI (urinary tract infection) - Discharge Information Prescriptions: Sulfamethoxazole/Trimethoprim [Bactrim Ds Tablet] 1 each PO BID #6 tablet Instructions: Viral Gastroenteritis, Adult, [id number], Urinary Tract Infection, Adult Referrals: Bianca Mejia NP [Primary Care Provider] - Forms: ED Department Discharge Additional Instructions: Please read discharge instructions on gastroenteritis and UTI frequent hand washing increase oral fluids bactrim DS 1 tablet twice daily for 3 days follow up as needed Sepsis Event Note - Evaluation Sepsis Screening Result: No Definite Risk - Focused Exam Vital Signs: Vital Signs Temp Pulse Resp BP Pulse Ox 11/24/19 18:10 37.5 C 90 18 122/51 L 98 Date Exam was Performed: 11/24/19 Time Exam was Performed: 20:54 - My Orders Last 24 Hours: My Active Orders 11/24/19 19:12 Sodium Chloride 0.9% [Saline Flush] 10 ml FLUSH ASDIRECTED PRN Saline Lock Insert [OM.PC] Routine 11/24/19 19:14 Abdomen Pelvis w Cont [CT] Stat 11/24/19 19:15 Sodium Chloride 0.9% [Normal Saline] 1,000 ml IV ASDIRECTED 11/24/19 20:54 Sodium Chloride 0.9% [Normal Saline] 50 ml IV ONETIME - Assessment/Plan Last 24 Hours: My Active Orders 11/24/19 19:12 Sodium Chloride 0.9% [Saline Flush] 10 ml FLUSH ASDIRECTED PRN Saline Lock Insert [OM.PC] Routine 11/24/19 19:14 Abdomen Pelvis w Cont [CT] Stat 11/24/19 19:15 Sodium Chloride 0.9% [Normal Saline] 1,000 ml IV ASDIRECTED 11/24/19 20:54 Sodium Chloride 0.9% [Normal Saline] 50 ml IV ONETIME
[2019-11-24] MEDS ORDERED: Promethazine 25 MG/ML SDV IV STA (20:43)
[2019-11-24] MEDS ORDERED: Morphine 2 MG/ML Syringe IVPUSH ONE (20:43)
[2019-11-24] MEDS ORDERED: Sulfamethoxazole/Trimethoprim 800-160 MG Tab PO STA (20:49)
[2019-11-24] MEDS ORDERED: Sodium Chloride 0.9% 50 ML ONE (20:50)
[2019-11-24] MEDS ORDERED: Sodium Chloride 0.9% 50 ML IV ONE (20:54)
[2019-11-24 21:27] VITALS: BP 124/63; PULSE 60
== END 2019-11-24 21:22 | disposition home or self-care (01) ==
LOC: FB.ED 18:10
DX: K52.9 Noninfective gastroenteritis and colitis, unspecified (principal); N39.0 Urinary tract infection, site not specified
CPT/HCPCS: 36415; 74177; 80053; 81001; 81025; 83690; 85025; 96361; 96374; 96375; 99284; A9270; J1885; J2270; J2405; J2550; J7030; J7050; Q9967

== ENCOUNTER 2020-11-24 16:42 | Emergency (ER) | payer OTHER, BC ==
[2020-11-24] MEDS ORDERED: Alum Hydroxide/Mag Hydroxide 15 ML, Lidocaine 2% 15 ML PO ONE ×2 (16:55)
[2020-11-24] MEDS ORDERED: Ondansetron 4 MG Tab.DIS PO STA (16:55)
--- NOTE | 2020-11-24 18:54 | EDM.PDOC ---
ED HPI GENERAL MEDICAL PROBLEM - General Stated Complaint: stomach and back pain Time Seen by Provider: 11/24/20 16:55 Source of Information: Reports: Patient History Limitations: Reports: No Limitations - History of Present Illness INITIAL COMMENTS - FREE TEXT/NARRATIVE: Patient presented to the ED because of epigastric pain, nausea but no vomiting which started 30 minutes prior to ED visit. The pain is sharp and burning,5/10. There is no diarrhea or constipations or any urinary symptoms. abdominal Pain Score (Numeric/FACES): 10 - Related Data Allergies Allergy/AdvReac Type Severity Reaction Status Date / Time Seasonal Allergy Other Uncoded 11/02/20 10:04 Home Meds: Home Meds Ibuprofen 800 mg PO Q8H PRN #30 tablet 05/31/19 [Rx] Ondansetron [Zofran ODT] 4 mg PO Q4H PRN #7 tab.dis 05/31/19 [Rx] Sulfamethoxazole/Trimethoprim [Bactrim Ds Tablet] 1 each PO BID #6 tablet 11/24/19 [Rx] Past Medical History HEENT History: Reports: Impaired Vision Gastrointestinal History: Reports: Celiac Disease, Other (See Below) Other Gastrointestinal History: gluten intolerance Genitourinary History: Reports: Other (See Below) Other Genitourinary History: chlamydia in 2014 and 2016 [employer] History: Reports: Polycystic Ovaries Other [employer] History: currently Musculoskeletal History: Reports: Arthritis, Back Pain, Chronic, Fracture, Other (See Below) Other Musculoskeletal History: fx L wrist, bilat carpal tunnel. degenerative disk disease Neurological History: Reports: Concussion, Migraines Psychiatric History: Reports: Anxiety, Depression, Panic Attack, PTSD, Suicidal Ideation, Other (See Below) Other Psychiatric History: borderline personality disorder, ETOH prior to Hematologic History: Reports: Anemia - Infectious Disease History Infectious Disease History: Reports: None - Past Surgical History HEENT Surgical History: Reports: Eye Surgery, Tonsillectomy Other HEENT Surgeries/Procedures: eye muscle shortening previously cross-eyed, wears glasses GI Surgical History: Reports: Colonoscopy, EGD Neurological Surgical History: Reports: None Musculoskeletal Surgical History: Reports: None Social & Family History - Family History Family Medical History: No Pertinent Family History - Caffeine Use Caffeine Use: Reports: Tea Caffeine Use Comment: probably 1 soda a week 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.) ED ROS GENERAL - Review of Systems Review Of Systems: See Below Constitutional: Reports: No Symptoms HEENT: Reports: No Symptoms Respiratory: Reports: No Symptoms Cardiovascular: Reports: No Symptoms Endocrine: Reports: No Symptoms GI/Abdominal: Reports: Abdominal Pain, Nausea : Reports: No Symptoms Musculoskeletal: Reports: No Symptoms Skin: Reports: No Symptoms Neurological: Reports: No Symptoms Psychiatric: Reports: No Symptoms ED EXAM, GI/ABD - Physical Exam Exam: See Below Exam Limited By: No Limitations General Appearance: Alert, No Apparent Distress Ears: Normal External Exam, Normal [place] Nose: Normal Inspection, Normal Mucosa Throat/Mouth: Normal Inspection, Normal Lips Head: Atraumatic, Normocephalic Neck: Normal Inspection, Supple, Non-Tender, Full Range of Motion Respiratory/Chest: No Respiratory Distress, Lungs Clear, Normal Breath Sounds, No Accessory Muscle Use, Chest Non-Tender Cardiovascular: Normal Peripheral Pulses, Regular Rate, Rhythm, No Edema, No Gallop, No JVD, No Murmur GI/Abdominal Exam: Normal Bowel Sounds, Soft, Other (epigastric tenderness) Back Exam: Normal Inspection, Full Range of Motion Extremities: Normal Inspection, Normal Range of Motion, Non-Tender Neurological: Alert, Oriented, CN II-XII Intact, Normal Cognition, Normal Gait Psychiatric: Normal Affect Course - Vital Signs Text/Narrative:: Lab result was reviewed and discussed with patient Zofran ODT 4 mg PO x1 GI cocktail po x1 Last Recorded V/S: Last Vital Signs Temp 36.7 C 11/24/20 16:54 Pulse 97 11/24/20 16:54 Resp 18 11/24/20 16:54 BP 127/60 11/24/20 16:54 Pulse Ox 99 11/24/20 16:54 - Orders/Labs/Meds Labs: Laboratory Tests 11/24/20 11/24/20 11/24/20 Range/Units 17:10 17:10 17:10 WBC 8.6 (3.0-10.3) x10-3/uL RBC 4.38 (3.60-5.20) x10(6)uL Hgb 13.3 (11.4-15.5) g/dL Hct 38.5 (34.2-48.2) % MCV 88.1 (76.7-100.5) fL MCH 30.5 (23.9-33.9) pg MCHC 34.6 (31.9-34.8) g/dL RDW 12.1 L (12.3-16.5) % Plt Count 244 (151-488) x10(3)uL MPV 10.2 (7.1-12.4) fL Neut % (Auto) 67.9 (30.8-76.2) % Lymph % (Auto) 24.4 (18.4-52.1) % [place] % (Auto) 5.9 (4.4-15.7) % Eos % (Auto) 1.6 (0.6-8.1) % Baso % (Auto) 0.2 (0.2-1.5) % Neut # (Auto) 5.9 (1.5-6.3) x10-3/uL Lymph # (Auto) 2.1 (1.0-4.4) x10-3/uL [place] # (Auto) 0.5 (0.3-1.0) x10-3/uL Eos # (Auto) 0.1 (0.0-0.8) x10-3/uL Baso # (Auto) 0.0 (0.0-0.1) x10-3/uL Sodium 143 (135-145) mmol/L Potassium 3.6 (3.5-5.3) mmol/L Chloride 105 (100-110) mmol/L Carbon Dioxide 27 (21-32) mmol/L BUN 10 (7-18) mg/dL Creatinine 0.9 (0.55-1.02) mg/dL Est Cr Clr Drug Dosing TNP Estimated GFR (MDRD) > 60 (>60) BUN/Creatinine Ratio 11.1 (9-20) Glucose 129 H (80-116) mg/dL Calcium 8.5 L (8.6-10.2) mg/dL Total Bilirubin 0.2 (0.1-1.3) mg/dL AST 15 D (5-25) IU/L ALT 26 D (12-36) U/L Alkaline Phosphatase 61 (56-112) IU/L Total Protein 7.1 (6.0-8.0) g/dL Albumin 3.8 (3.5-5.2) g/dL Globulin 3.3 g/dL Albumin/Globulin Ratio 1.2 Amylase 22 L (25-115) U/L Lipase 53 L (73-393) U/L Urine Color (YELLOW) Urine Appearance (CLEAR) Urine pH (5.0-6.5) Ur Specific [place] (1.010-1.025) Urine Protein (NEGATIVE) mg/dL Urine Glucose (UA) (NORMAL) mg/dL Urine Ketones (NEGATIVE) mg/dL Urine Occult Blood (NEGATIVE) Urine Nitrite (NEGATIVE) Urine Bilirubin (NEGATIVE) Urine Urobilinogen (NEGATIVE) mg/dL Ur Leukocyte Esterase (NEGATIVE) Urine RBC (0-5) Urine WBC (0-5) Ur Epithelial Cells Urine Bacteria (NS) Urine HCG, Qual (NEGATIVE) 11/24/20 11/24/20 Range/Units 18:30 18:30 WBC (3.0-10.3) x10-3/uL RBC (3.60-5.20) x10(6)uL Hgb (11.4-15.5) g/dL Hct (34.2-48.2) % MCV (76.7-100.5) fL MCH (23.9-33.9) pg MCHC (31.9-34.8) g/dL RDW (12.3-16.5) % Plt Count (151-488) x10(3)uL MPV (7.1-12.4) fL Neut % (Auto) (30.8-76.2) % Lymph % (Auto) (18.4-52.1) % [place] % (Auto) (4.4-15.7) % Eos % (Auto) (0.6-8.1) % Baso % (Auto) (0.2-1.5) % Neut # (Auto) (1.5-6.3) x10-3/uL Lymph # (Auto) (1.0-4.4) x10-3/uL [place] # (Auto) (0.3-1.0) x10-3/uL Eos # (Auto) (0.0-0.8) x10-3/uL Baso # (Auto) (0.0-0.1) x10-3/uL Sodium (135-145) mmol/L Potassium (3.5-5.3) mmol/L Chloride (100-110) mmol/L Carbon Dioxide (21-32) mmol/L BUN (7-18) mg/dL Creatinine (0.55-1.02) mg/dL Est Cr Clr Drug Dosing Estimated GFR (MDRD) (>60) BUN/Creatinine Ratio (9-20) Glucose (80-116) mg/dL Calcium (8.6-10.2) mg/dL Total Bilirubin (0.1-1.3) mg/dL AST (5-25) IU/L ALT (12-36) U/L Alkaline Phosphatase (56-112) IU/L Total Protein (6.0-8.0) g/dL Albumin (3.5-5.2) g/dL Globulin g/dL Albumin/Globulin Ratio Amylase (25-115) U/L Lipase (73-393) U/L Urine Color Yellow (YELLOW) Urine Appearance Clear (CLEAR) Urine pH 7.0 H (5.0-6.5) Ur Specific [place] 1.010 (1.010-1.025) Urine Protein Negative (NEGATIVE) mg/dL Urine Glucose (UA) Normal (NORMAL) mg/dL Urine Ketones Negative (NEGATIVE) mg/dL Urine Occult Blood Moderate H (NEGATIVE) Urine Nitrite Negative (NEGATIVE) Urine Bilirubin Negative (NEGATIVE) Urine Urobilinogen Normal (NEGATIVE) mg/dL Ur Leukocyte Esterase Negative (NEGATIVE) Urine RBC 0-5 (0-5) Urine WBC 0-5 (0-5) Ur Epithelial Cells Few Urine Bacteria Rare H (NS) Urine HCG, Qual Negative (NEGATIVE) Meds: Medications Discontinued Medications Generic Name Dose Route Start Last Admin Trade Name Mumtaz PRN Reason Stop Dose Admin Al Hydroxide/Mg Hydroxide 15 0 ml 11/24/20 16:55 11/24/20 17:43 ml/ Lidocaine HCl 15 ml PO 11/24/20 16:56 30 ml ONETIME ONE Administration Ondansetron HCl 4 mg 11/24/20 16:55 11/24/20 17:44 Ondansetron 4 Mg Tab.Dis PO 11/24/20 16:56 4 mg NOW STA Administration Departure - Departure Time of Disposition: 18:55 Disposition: Home, Self-Care 01 Condition: Good Clinical Impression: GERD (gastroesophageal reflux disease) - Discharge Information Instructions: Food Choices for Gastroesophageal Reflux Disease, Adult, [id number] Referrals: Bianca Mejia NP [Primary Care Provider] - Additional Instructions: Please read discharge instructions on GERD/Acid reflux Chew and swallow 2-3 extra strength TUMS as needed for pain Follow up as needed Sepsis Event Note (ED) - Evaluation Sepsis Screening Result: No Definite Risk - Focused Exam Vital Signs: Vital Signs Temp Pulse Resp BP Pulse Ox 11/24/20 16:54 36.7 C 97 18 127/60 99
[2020-11-24 19:05] VITALS: BP 118/60; PULSE 88
== END 2020-11-24 18:58 | disposition home or self-care (01) ==
LOC: FB.ED 16:42
DX: K21.9 Gastro-esophageal reflux disease without esophagitis (principal); Z91.048 Other nonmedicinal substance allergy status
CPT/HCPCS: 36415; 80053; 81001; 81025; 82150; 83690; 85025; 99284; A9270-GY

== ENCOUNTER 2021-01-21 08:56 | Emergency (ER) | payer OTHER ==
[2021-01-21 09:16] VITALS: BP 119/69; PULSE 77
--- NOTE | 2021-01-21 09:17 | EDM.PDOC ---
ED HPI GENERAL MEDICAL PROBLEM - General Chief Complaint: General Stated Complaint: CHEST PAIN Time Seen by Provider: 01/21/21 09:14 Source of Information: Reports: Patient History Limitations: Reports: No Limitations - History of Present Illness INITIAL COMMENTS - FREE TEXT/NARRATIVE: Patient developed right sided chest pain radiating to right mid back after lifting a heavy pump (>100 lbs) at work @1 hr ago. Denies SOB. Pain is exacerbated with palpating the area. Onset: Today Duration: Hour(s): (1) Location: Reports: Chest Quality: Reports: Ache Severity: Mild Right Upper Chest Pain Score (Numeric/FACES): 7 - Related Data Allergies Allergy/AdvReac Type Severity Reaction Status Date / Time Seasonal Allergy Other Uncoded 11/02/20 10:04 Home Meds: Home Meds Ibuprofen 800 mg PO Q8H PRN #30 tablet 05/31/19 [Rx] Ondansetron [Zofran ODT] 4 mg PO Q4H PRN #7 tab.dis 05/31/19 [Rx] Sulfamethoxazole/Trimethoprim [Bactrim Ds Tablet] 1 each PO BID #6 tablet 11/24/19 [Rx] Past Medical History HEENT History: Reports: Impaired Vision Gastrointestinal History: Reports: Celiac Disease, Other (See Below) Other Gastrointestinal History: gluten intolerance Genitourinary History: Reports: Other (See Below) Other Genitourinary History: chlamydia in 2014 and 2016 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 degenerative disk disease Neurological History: Reports: Concussion, Migraines Psychiatric History: Reports: Anxiety, Depression, Panic Attack, PTSD, Suicidal Ideation, Other (See Below) Other Psychiatric History: borderline personality disorder, ETOH prior to Hematologic History: Reports: Anemia - Infectious Disease History Infectious Disease History: Reports: None - Past Surgical History HEENT Surgical History: Reports: Eye Surgery, Tonsillectomy Other HEENT Surgeries/Procedures: eye muscle shortening previously cross-eyed, wears glasses GI Surgical History: Reports: Colonoscopy, EGD Neurological Surgical History: Reports: None Musculoskeletal Surgical History: Reports: None Social & Family History - Family History Family Medical History: No Pertinent Family History - Caffeine Use Caffeine Use: Reports: None Caffeine Use Comment: probably 1 soda a week 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 ED EXAM, GENERAL - Physical Exam Exam: See Below Exam Limited By: No Limitations General Appearance: Alert, WD/WN, No Apparent Distress Throat/Mouth: No Airway Compromise Head: Atraumatic, Normocephalic Neck: Full Range of Motion Respiratory/Chest: No Respiratory Distress, Lungs Clear, Normal Breath Sounds, Other (right anterior chest wall tenderness) Cardiovascular: Regular Rate, Rhythm, No Murmur Back Exam: Normal Inspection, Full Range of Motion Extremities: Normal Range of Motion Neurological: Alert, Oriented, Normal Cognition Skin Exam: Warm, Dry, Intact Course - Vital Signs Last Recorded V/S: Last Vital Signs Temp 36.8 C 01/21/21 08:59 Pulse 77 01/21/21 08:59 Resp 16 01/21/21 08:59 BP 119/69 01/21/21 08:59 Pulse Ox 97 01/21/21 08:59 - Orders/Labs/Meds Orders: Active Orders 24 hr Category Date Time Status CXR [Chest 2V] [CR] Stat Exams 01/21/21 09:13 Ordered - Radiology Interpretation Free Text/Narrative:: CXR: No acute process. (ED provider interpretation) Departure - Departure Time of Disposition: 09:53 Disposition: Home, Self-Care 01 Condition: Good Clinical Impression: Strain of chest wall Qualifiers: Encounter type: initial encounter Qualified Code(s): S29.011A - Strain of muscle and tendon of front wall of thorax, initial encounter - Discharge Information *PRESCRIPTION DRUG MONITORING PROGRAM REVIEWED*: No *COPY OF PRESCRIPTION DRUG MONITORING REPORT IN PATIENT LAURITA: Not Applicable Instructions: Muscle Strain, [id number] Forms: ED Department Discharge, ED Return to Work/School Form Additional Instructions: Rest, take Ibuprofen as needed. Do not lift more than 10 lbs for 1 week. Sepsis Event Note (ED) - Focused Exam Vital Signs: Vital Signs Temp Pulse Resp BP Pulse Ox 01/21/21 08:59 36.8 C 77 16 119/69 97 - My Orders Last 24 Hours: My Active Orders 01/21/21 09:13 CXR [Chest 2V] [CR] Stat - Assessment/Plan Last 24 Hours: My Active Orders 01/21/21 09:13 CXR [Chest 2V] [CR] Stat
--- NOTE | 2021-01-21 10:59 | CR ---
INDICATION: Right-sided chest pain since 8:00 a.m. CHEST TWO VIEWS: PA and lateral views of the chest were obtained 01/21/21 - no comparisons. A mild dextroconcave scoliosis of the lower and middle thoracic spine is noted. Heart and mediastinum are unremarkable. An active infiltrate or effusion was not identified. IMPRESSION: No acute process. MTDD
== END 2021-01-21 10:10 | disposition home or self-care (01) ==
LOC: EDUNIT# → FB.ED 08:56
DX: S29.011A Strain of muscle and tendon of front wall of thorax, initial encounter (principal); Z91.048 Other nonmedicinal substance allergy status; X50.0XXA Overexertion from strenuous movement or load, initial encounter
CPT/HCPCS: 71046; 99000; 99282; 99283-25

== ENCOUNTER 2021-04-21 19:41 | Emergency (ER) | payer BC, OTHER ==
[2021-04-21] MEDS ORDERED: Sodium Chloride 0.9% 10 ML Syringe FLUSH PRN (20:05)
[2021-04-21] MEDS ORDERED: Sodium Chloride 0.9% 1,000 ML IV SCH (20:15)
--- NOTE | 2021-04-21 21:11 | EDM.PDOC ---
ED HPI GENERAL MEDICAL PROBLEM - General Chief Complaint: General Stated Complaint: DIZZY,LIGHTHEADED Time Seen by Provider: 04/21/21 19:45 Source of Information: Reports: Patient History Limitations: Reports: No Limitations - History of Present Illness INITIAL COMMENTS - FREE TEXT/NARRATIVE: Patient presented to the ED because of palpitations and dizziness. She feel her heart pounding followed by brief episode of dizziness. there is no chest pain, dyspnea, N/V. She is 5 weeks AOG. Same episode of palpitation happened a year ago, was seen by a cage unloader and all test were apparently normal. headache Pain Score (Numeric/FACES): 2 - Related Data Allergies Allergy/AdvReac Type Severity Reaction Status Date / Time Seasonal Allergy Other Uncoded 01/25/21 08:11 Home Meds: Home Meds Ibuprofen 800 mg PO Q8H PRN #30 tablet 05/31/19 [Rx] Ondansetron [Zofran ODT] 4 mg PO Q4H PRN #7 tab.dis 05/31/19 [Rx] Sulfamethoxazole/Trimethoprim [Bactrim Ds Tablet] 1 each PO BID #6 tablet 11/24/19 [Rx] Past Medical History HEENT History: Reports: Impaired Vision Gastrointestinal History: Reports: Celiac Disease, Other (See Below) Other Gastrointestinal History: gluten intolerance Genitourinary History: Reports: Other (See Below) Other Genitourinary History: chlamydia in 2014 and 2016 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 degenerative disk disease Neurological History: Reports: Concussion, Migraines Psychiatric History: Reports: Anxiety, Depression, Other (See Below), Panic Attack, PTSD, Suicidal Ideation Other Psychiatric History: borderline personality disorder, ETOH prior to Hematologic History: Reports: Anemia - Infectious Disease History Infectious Disease History: Reports: None - Past Surgical History HEENT Surgical History: Reports: Eye Surgery, Tonsillectomy Other HEENT Surgeries/Procedures: eye muscle shortening previously cross-eyed, wears glasses GI Surgical History: Reports: Colonoscopy, EGD Neurological Surgical History: Reports: None Musculoskeletal Surgical History: Reports: None Social & Family History - Family History Family Medical History: No Pertinent Family History - Caffeine Use Caffeine Use: Reports: None Caffeine Use Comment: probably 1 soda a week 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.) ED ROS GENERAL - Review of Systems Review Of Systems: See Below Constitutional: Reports: No Symptoms HEENT: Reports: No Symptoms Respiratory: Reports: No Symptoms Cardiovascular: Reports: Lightheadedness Endocrine: Reports: No Symptoms GI/Abdominal: Reports: No Symptoms : Reports: No Symptoms Musculoskeletal: Reports: No Symptoms Skin: Reports: No Symptoms Neurological: Reports: Dizziness Psychiatric: Reports: No Symptoms Hematologic/Lymphatic: Reports: No Symptoms ED EXAM, GENERAL - Physical Exam Exam: See Below Exam Limited By: No Limitations General Appearance: Alert, No Apparent Distress Ears: Normal External Exam, Normal Canal Nose: Normal Inspection, Normal Mucosa, No Blood Throat/Mouth: Normal Inspection, Normal Lips, Normal Teeth, Normal Gums, Normal Oropharynx, Normal Voice Head: Atraumatic, Normocephalic Neck: Normal Inspection, Supple, Non-Tender, Full Range of Motion Respiratory/Chest: No Respiratory Distress, Lungs Clear, Normal Breath Sounds, No Accessory Muscle Use, Chest Non-Tender Cardiovascular: Normal Peripheral Pulses, Regular Rate, Rhythm, No Edema, No Gallop, No JVD, No Murmur GI/Abdominal: Normal Bowel Sounds, Soft, Non-Tender, No Organomegaly, No Distention, No Abnormal Bruit, No Mass Back Exam: Normal Inspection, Full Range of Motion Extremities: Normal Inspection, Normal Range of Motion, Non-Tender, No Pedal Edema, Normal Capillary Refill Neurological: Alert, Oriented, CN II-XII Intact, Normal Cognition, Normal Reflexes, No Motor/Sensory Deficits Psychiatric: Normal Affect Skin Exam: Warm #1 Interpretation EKG Date: 04/21/21 Time: 20:27 Rhythm: NSR Rate (Beats/Min): 72 [place]: Normal P-Wave: Present QRS: Normal ST-T: Normal QT: Normal [place]/PQ Interval: 135 Comparison: NA - No Prior EKG EKG Interpretation Comments: NSR Course - Vital Signs Text/Narrative:: Lab/EKG result was reviewed and discussed with patient NS 1 L bolus Last Recorded V/S: Last Vital Signs Temp 36.7 C 04/21/21 21:40 Pulse 79 04/21/21 21:40 Resp 18 04/21/21 21:40 BP 110/63 04/21/21 21:40 Pulse Ox 98 04/21/21 21:40 Orthostatic Blood Pressure [ 111/73 Standing] Orthostatic Blood Pressure [ 112/63 Sitting] Orthostatic Blood Pressure [ 118/60 Supine] - Orders/Labs/Meds Orders: Active Orders 24 hr Category Date Time Status Saline Lock Insert [OM.PC] Routine Oth 04/21/21 20:05 Ordered EKG 12 Lead [EK] Routine Ther 04/21/21 20:15 Ordered Labs: Laboratory Tests 04/21/21 04/21/21 04/21/21 Range/Units 20:10 20:10 20:10 WBC 10.0 (3.0-10.3) x10-3/uL RBC 4.65 (3.60-5.20) x10(6)uL Hgb 13.9 (11.4-15.5) g/dL Hct 40.9 (34.2-48.2) % MCV 87.9 (76.7-100.5) fL MCH 29.9 (23.9-33.9) pg MCHC 34.0 (31.9-34.8) g/dL RDW 12.9 (12.3-16.5) % Plt Count 272 (151-488) x10(3)uL MPV 9.0 (7.1-12.4) fL Neut % (Auto) 71.7 (30.8-76.2) % Lymph % (Auto) 19.3 (18.4-52.1) % [place] % (Auto) 6.5 (4.4-15.7) % Eos % (Auto) 2.2 (0.6-8.1) % Baso % (Auto) 0.3 (0.2-1.5) % Neut # (Auto) 7.2 H (1.5-6.3) x10-3/uL Lymph # (Auto) 1.9 (1.0-4.4) x10-3/uL [place] # (Auto) 0.7 (0.3-1.0) x10-3/uL Eos # (Auto) 0.2 (0.0-0.8) x10-3/uL Baso # (Auto) 0.0 (0.0-0.1) x10-3/uL Sodium 140 (135-145) mmol/L Potassium 4.0 (3.5-5.3) mmol/L Chloride 104 (100-110) mmol/L Carbon Dioxide 26 (21-32) mmol/L BUN 12 (7-18) mg/dL Creatinine 0.9 (0.55-1.02) mg/dL Est Cr Clr Drug Dosing 104.23 mL/min Estimated GFR (MDRD) > 60 (>60) BUN/Creatinine Ratio 13.3 (9-20) Glucose 115 (80-116) mg/dL Calcium 8.7 (8.6-10.2) mg/dL TSH, Ultra Sensitive 2.51 (0.36-3.74) IU/mL Urine Color (YELLOW) Urine Appearance (CLEAR) Urine pH (5.0-6.5) Ur Specific [place] (1.010-1.025) Urine Protein (NEGATIVE) mg/dL Urine Glucose (UA) (NORMAL) mg/dL Urine Ketones (NEGATIVE) mg/dL Urine Occult Blood (NEGATIVE) Urine Nitrite (NEGATIVE) Urine Bilirubin (NEGATIVE) Urine Urobilinogen (NEGATIVE) mg/dL Ur Leukocyte Esterase (NEGATIVE) Urine RBC (0-5) Urine WBC (0-5) Ur Squamous Epith Cells (NS,R,O) Urine Bacteria (NS) 04/21/21 Range/Units 21:05 WBC (3.0-10.3) x10-3/uL RBC (3.60-5.20) x10(6)uL Hgb (11.4-15.5) g/dL Hct (34.2-48.2) % MCV (76.7-100.5) fL MCH (23.9-33.9) pg MCHC (31.9-34.8) g/dL RDW (12.3-16.5) % Plt Count (151-488) x10(3)uL MPV (7.1-12.4) fL Neut % (Auto) (30.8-76.2) % Lymph % (Auto) (18.4-52.1) % [place] % (Auto) (4.4-15.7) % Eos % (Auto) (0.6-8.1) % Baso % (Auto) (0.2-1.5) % Neut # (Auto) (1.5-6.3) x10-3/uL Lymph # (Auto) (1.0-4.4) x10-3/uL [place] # (Auto) (0.3-1.0) x10-3/uL Eos # (Auto) (0.0-0.8) x10-3/uL Baso # (Auto) (0.0-0.1) x10-3/uL Sodium (135-145) mmol/L Potassium (3.5-5.3) mmol/L Chloride (100-110) mmol/L Carbon Dioxide (21-32) mmol/L BUN (7-18) mg/dL Creatinine (0.55-1.02) mg/dL Est Cr Clr Drug Dosing mL/min Estimated GFR (MDRD) (>60) BUN/Creatinine Ratio (9-20) Glucose (80-116) mg/dL Calcium (8.6-10.2) mg/dL TSH, Ultra Sensitive (0.36-3.74) IU/mL Urine Color Yellow (YELLOW) Urine Appearance Clear (CLEAR) Urine pH 5.0 (5.0-6.5) Ur Specific [place] 1.030 H (1.010-1.025) Urine Protein Negative (NEGATIVE) mg/dL Urine Glucose (UA) Normal (NORMAL) mg/dL Urine Ketones Negative (NEGATIVE) mg/dL Urine Occult Blood Negative (NEGATIVE) Urine Nitrite Negative (NEGATIVE) Urine Bilirubin Negative (NEGATIVE) Urine Urobilinogen Normal (NEGATIVE) mg/dL Ur Leukocyte Esterase Negative (NEGATIVE) Urine RBC 0-5 (0-5) Urine WBC 0-5 (0-5) Ur Squamous Epith Cells Few H (NS,R,O) Urine Bacteria Few H (NS) Meds: Medications Discontinued Medications Generic Name Dose Route Start Last Admin Trade Name Freq PRN Reason Stop Dose Admin Sodium Chloride 1,000 mls @ 999 mls/hr 04/21/21 20:15 04/21/21 20:40 Normal Saline IV 999 mls/hr ASDIRECTED EDA Administration Sodium Chloride 10 ml 04/21/21 20:05 04/21/21 20:42 Sodium Chloride 0.9% 10 Ml Syringe FLUSH 10 ml ASDIRECTED PRN Administration Keep Vein Open Departure - Departure Time of Disposition: 21:30 Disposition: Home, Self-Care 01 Condition: Good Clinical Impression: Palpitations, Dizziness - Discharge Information Instructions: Palpitations, [id number] Referrals: PCP,None [Primary Care Provider] - Forms: ED Department Discharge Additional Instructions: Please read discharge instructions on palpitations Drink at least 2-3 liters of water daily Keep your appointment to be seen by your cage unloader. Sepsis Event Note (ED) - Evaluation Sepsis Screening Result: No Definite Risk - Focused Exam Vital Signs: Vital Signs Temp Pulse Resp BP Pulse Ox 04/21/21 21:40 36.7 C 79 18 110/63 98 04/21/21 19:42 36.7 C 72 18 118/60 96 - My Orders Last 24 Hours: My Active Orders 04/21/21 20:05 Saline Lock Insert [OM.PC] Routine 04/21/21 20:15 EKG 12 Lead [EK] Routine - Assessment/Plan Last 24 Hours: My Active Orders 04/21/21 20:05 Saline Lock Insert [OM.PC] Routine 04/21/21 20:15 EKG 12 Lead [EK] Routine
[2021-04-21 22:27] VITALS: BP 110/63; PULSE 79
== END 2021-04-21 21:45 | disposition home or self-care (01) ==
LOC: FB.ED 19:41
DX: R42 Dizziness and giddiness (principal); R00.2 Palpitations; Z91.09 Other allergy status, other than to drugs and biological substances
CPT/HCPCS: 36415; 80048; 81001; 84443; 85025; 93005; 99285-25; J7030

== ENCOUNTER 2023-07-26 12:00 | Emergency (ER) | payer BC ==
[2023-07-26 14:16] VITALS: BP 108/57; PULSE 79
== END 2023-07-26 13:27 ==
LOC: FB.ED 12:00
DX: M54.16 Radiculopathy, lumbar region (principal); R20.0 Anesthesia of skin; N39.42 Incontinence without sensory awareness; J30.2 Other seasonal allergic rhinitis
CPT/HCPCS: 99284

== ENCOUNTER 2025-01-29 17:07 | Emergency (ER) | payer BC, OTHER ==
[2025-01-29] MEDS ORDERED: Sodium Chloride 0.9% 10 ML Syringe FLUSH PRN (18:30)
[2025-01-29] MEDS: Ondansetron 4 MG/2 ML SDV IVPUSH ONE (18:48)
[2025-01-29 18:54] LABS: BASOPHILS ABSOLUTE AUTO 0.0 x10-3/uL (0.0-0.1); BASOPHILS PERCENT AUTO 0.2 % (0.2-1.5); EOSINOPHILS ABSOLUTE AUTO 0.2 x10-3/uL (0.0-0.8); EOSINOPHILS PERCENT AUTO 2.3 % (0.6-8.1); LYMPHOCYTES ABSOLUTE AUTO 2.1 x10-3/uL (1.0-4.4); LYMPHOCYTES PERCENT AUTO 25.3 % (18.4-52.1); MEAN PLATELET VOLUME 10.4 fL (7.1-12.4); MONOCYTES ABSOLUTE AUTO 0.6 x10-3/uL (0.3-1.0); MONOCYTES PERCENT AUTO 7.3 % (4.4-15.7); NEUTROPHILS ABSOLUTE AUTO 5.4 x10-3/uL (1.5-6.3); NEUTROPHILS PERCENT AUTO 64.9 % (30.8-76.2); PLATELET COUNT,PLT 262 x10(3)uL (151-488); RED BLOOD CELL COUNT 5.06 x10(6)uL (3.60-5.20); RED CELL DISTRIBUTION WIDTH 13.5 % (12.3-16.5); WHITE BLOOD CELL COUNT,WBC 8.3 x10-3/uL (3.0-10.3)
[2025-01-29 18:59] LABS: BLOOD UREA NITROGEN,BUN 16 mg/dL (7-18); CARBON DIOXIDE,CO2 30 mmol/L (21-32); CHLORIDE,CL 102 mmol/L (100-110); CREATININE 0.8 mg/dL (0.55-1.02); EST CRCL DRUG DOSING (CG) 113.21 mL/min; ESTIMATED GFR 103 mL/min (>60); GLUCOSE RANDOM 85 mg/dL (80-116); POTASSIUM,K 3.8 mmol/L (3.5-5.3); SODIUM,NA 140 mmol/L (135-145)
[2025-01-29 20:07] VITALS: BP 119/76; PULSE 60
== END 2025-01-29 19:58 | disposition home or self-care (01) ==
LOC: FB.ED 17:07
DX: E86.0 Dehydration (principal); F17.210 Nicotine dependence, cigarettes, uncomplicated; Z79.899 Other long term (current) drug therapy; Z90.49 Acquired absence of other specified parts of digestive tract
CPT/HCPCS: 36415; 80048; 85025; 96361; 96374; 99283; 99284-25; A9270-GY; J2405; J7030